=== PATIENT | female | born 1965 | race Hispanic/Latino ===

== ENCOUNTER 2019-05-02 21:36 | Inpatient (IN) | payer MEDICAID, OTHER ==
--- NOTE | 2019-05-02 21:49 | ED PDOC ---
Arrival/HPI - General Time Seen by Provider: 05/02/19 21:38 Historian: Patient - Critical Care Critical Care Minutes: 30 minutes - History of Present Illness Narrative History of Present Illness (Text): 05/03/19 00:13 54 year old female, with no known past medical history, presents to emergency department via EMS for possible drug overdose. As per collateral information obtained, patient was found at home somnolent with possible overdose. Paramedics were summoned, and patient was found to have pinpoint pupils and administered narcan with immediate response. On arrival to ER, patient was drowsy but awake. She refused to answer questions initially and was poorly cooperative with nursing staff. HPI limited due to patient being uncooperative. Time/Duration: Prior to Arrival Symptom Onset: Gradual Symptom Course: Unchanged Activities at Onset: Light Context: Home Past Medical History - Provider Review Nursing Documentation Reviewed: Yes Family/Social History - Physician Review Nursing Documentation Reviewed: Yes Family/Social History: Unknown Family HX Allergies/Home Meds Allergies/Adverse Reactions: Allergies Unobtainable Allergy (Verified 05/02/19 21:39) Home Medications: Home Meds Medication Instructions Recorded Confirmed Unobtainable 05/02/19 05/02/19 Review of Systems - Physician Review All systems were reviewed & negative as marked: Yes - Review of Systems Systems not reviewed;Unavailable: Uncooperative Physical Exam Vital Signs Reviewed: Yes Temperature: Afebrile Blood Pressure: Normal Pulse: Regular Respiratory Rate: Normal Appearance: Positive for: Well-Appearing, Non-Toxic, Comfortable Pain Distress: None Mental Status: Positive for: other (drowsy, easily arousable) - Systems Exam Head: Present: Atraumatic, Normocephalic Pupils: Present: PERRL Extroacular Muscles: Present: EOMI Conjunctiva: Present: Normal Ears: Present: NORMAL TM Mouth: Present: Moist Mucous Membranes Neck: Present: Normal Range of Motion Respiratory/Chest: Present: Clear to Auscultation, Good Air Exchange. No: Respiratory Distress, Accessory Muscle Use Cardiovascular: Present: Regular Rate and Rhythm, Normal S1, S2. No: Murmurs Abdomen: No: Tenderness, Distention, Peritoneal Signs Back: Present: Normal Inspection Upper Extremity: Present: Normal Inspection. No: Cyanosis, Edema Lower Extremity: Present: Normal Inspection. No: Edema Neurological: Present: GCS=15, CN II-XII Intact, Speech Normal, Motor Func Grossly Intact, Normal Sensory Function Skin: Present: Warm, Dry, Normal Color. No: Rashes Medical Decision Making ED Course and Treatment: 05/02/19 22:35 Impression: 54 year old female presents to emergency department via EMS for possible drug overdose. Plan: -- EKG -- Labs -- Chest X-ray -- Benadryl -- IV Fluids -- Reassess and disposition 05/03/19 00:36 EKG: Ordered, reviewed, and independently interpreted the EKG. Rate : 52 BPM Rhythm : Sinus bradycardia Interpretation : No acute changes 05/03/19 01:10 Case discussed with medical office technician and supervisor concrete block plant, . Patient accepted to ICU. 05/03/19 01:20 Poison control had been notified.They recommend starting Acetadote. Geotechnical Engineer aware.Orders placed. - RAD Interpretation Radiology Orders: 05/02/19 21:46 CHEST PORTABLE [RAD] Stat - Medication Orders Current Medication Orders: Sodium Chloride (Sodium Chloride 0.9%) 1,000 mls @ 100 mls/hr IV .Q10H PATTIE - Scribe Statement The provider has reviewed the documentation as recorded by the Scribe Joe Mario All medical record entries made by the Scribe were at my direction and personally dictated by me. I have reviewed the chart and agree that the record accurately reflects my personal performance of the history, physical exam, medical decision making, and the department course for this patient. I have also personally directed, reviewed, and agree with the discharge instructions and disposition. Disposition/Present on Arrival - Present on Arrival Any Indicators Present on Arrival: No History of DVT/PE: No History of Uncontrolled Diabetes: No Urinary Catheter: No History of Decub. Ulcer: No History Surgical Site Infection Following: None - Disposition Have Diagnosis and Disposition been Completed?: Yes Diagnosis: Drug overdose Disposition: HOSPITALIZED Disposition Time: 00:50 Patient Plan: ICU Patient Problems: Current Active Problems Problem Status Onset Drug overdose Acute Condition: GUARDED
[2019-05-02 22:19] LABS: ARTERIAL BLOOD GAS HCO3 29.9 mmol/L (21-28); ARTERIAL BLOOD GAS HEMOGLOBIN 13.7 g/dL (11.7-17.4); ARTERIAL BLOOD GAS O2 CONTENT 17.6 ML/dl (15-23); ARTERIAL BLOOD GAS PCO2 44 mm/Hg (35-45); ARTERIAL BLOOD GAS PH 7.44 (7.35-7.45); ARTERIAL BLOOD GAS TCO2 31.3 mmol.L (22-28)
[2019-05-02] MEDS: Sodium Chloride 0.9% 1,000 ML IV SCH (22:21)
[2019-05-02] MEDS ORDERED: DiphenhydrAMINE 50 mg/ml Inj IVP ONE (22:34)
[2019-05-02] MEDS ORDERED: DiphenhydrAMINE 50 mg/ml Inj ONE (22:35)
[2019-05-02 23:02] LABS: PHENCYCLIDINE, UR NEGATIVE (NEGATIVE)
[2019-05-02 23:11] LABS: BARBITURATES, UR NEGATIVE (NEGATIVE); BENZODIAZEPINES, UR POSITIVE (NEGATIVE); OPIATES, UR POSITIVE (NEGATIVE)
[2019-05-02 23:13] LABS: HEMOGLOBIN 13.2 g/dL (12.0-16.0); MEAN CELL VOLUME 88.8 fl (80.0-105.0); MEAN CORPUSCULAR HEMOGLOBIN 27.9 pg (25.0-35.0); MEAN CORPUSCULAR HGB CONC 31.4 g/dl (31.0-37.0); MEAN PLATELET VOLUME 10.4 fl (7.0-11.0); RBC 4.73 10^6/uL (3.5-6.1); RED CELL DISTRIBUTION WIDTH 14.7 % (11.5-14.5); WHITE BLOOD COUNT 5.9 10^3/uL (4.5-11.0)
[2019-05-02 23:26] LABS: ALBUMIN 3.7 g/dL (3.0-4.8); ALT/SGPT 16 U/L (7-56); AST/SGOT 34 U/L (14-36); BLOOD UREA NITROGEN 17 mg/dL (7-21); CALCIUM 9.1 mg/dL (8.4-10.5); GFR NON-AFRICAN AMERICAN > 60; SALICYLATE < 1 mg/dL (2.0-20.0)
[2019-05-02 23:37] LABS: TROPONIN I < 0.01 ng/mL
[2019-05-03] MEDS ORDERED: WATER IVPB STA (00:28)
[2019-05-03] MEDS ORDERED: DEXTROSE 5% IV ONE ×3 (00:28→05:28)
[2019-05-03] MEDS ORDERED: WATER IV ONE ×3 (00:28→05:28)
[2019-05-03] MEDS ORDERED: DEXTROSE 5% IVPB STA (00:28)
[2019-05-03] MEDS ORDERED: ACETYLCYSTEINE IVPB STA (00:28)
[2019-05-03] MEDS ORDERED: ACETYLCYSTEINE IV ONE ×3 (00:28→05:28)
--- NOTE | 2019-05-03 00:47 | CP.PCM.HP ---
<Jacques James - Last Filed: 05/03/19 03:38> History of Present Illness - History of Present Illness History of Present Illness: Poison control was contacted and case was discussed with litigation examiner. We were advised to treat the tylenol level given that the time of ingestion is unknown. In addition, patient was becoming bradycardic but hypertensive overnight; ordered a dig level given unknown patient history. Poison control will follow up with patient 21 hours after the first dose of NAC was given. Meds Allergies/Adverse Reactions: Allergies Allergy/AdvReac Type Severity Reaction Status Date / Time Unobtainable Allergy Verified 05/02/19 21:39 Results - Vital Signs Recent Vital Signs: Last Vital Signs Temp Pulse 45 L 05/03/19 01:41 Resp 20 05/03/19 01:41 BP 137/78 05/03/19 01:41 Pulse Ox 99 05/03/19 01:41 - Labs Result Diagrams: 05/02/19 23:00 05/02/19 23:00 Labs: Laboratory Results - last 24 hr 05/02/19 05/02/19 05/02/19 22:04 22:15 23:00 WBC RBC Hgb Hct MCV MCH MCHC RDW Plt Count MPV pCO2 44 pO2 76.0 L HCO3 29.9 H ABG pH 7.44 ABG Total CO2 31.3 H ABG O2 Saturation 98.0 ABG O2 Content 17.6 ABG Base Excess 5.0 H ABG Hemoglobin 13.7 ABG Carboxyhemoglobin 5.7 H POC ABG HHb (Measured) 1.9 ABG Methemoglobin 1.0 ABG O2 Capacity 18.0 Hgb O2 Saturation 91.3 L FiO2 28.0 Sodium 141 Potassium 3.6 Chloride 104 Carbon Dioxide 34 H Anion Gap 7 L BUN 17 Creatinine 0.8 Est GFR ( Amer) > 60 Est GFR (Non-Af Amer) > 60 Random Glucose 92 Calcium 9.1 Total Bilirubin 0.3 AST 34 ALT 16 Alkaline Phosphatase 73 Lactate Dehydrogenase 559 Total Creatine Kinase 201 Troponin I < 0.01 Total Protein 7.4 Albumin 3.7 Globulin 3.7 Albumin/Globulin Ratio 1.0 L Salicylates Urine Opiates Screen Positive H Urine Methadone Screen Negative Acetaminophen Ur Barbiturates Screen Negative Ur Phencyclidine Scrn Negative Ur Amphetamines Screen Negative U Benzodiazepines Scrn Positive H U Oth Cocaine Metabols Negative U Cannabinoids Screen Negative Alcohol, Quantitative 05/02/19 05/02/19 05/02/19 23:00 23:00 23:00 WBC 5.9 RBC 4.73 Hgb 13.2 Hct 42.0 MCV 88.8 MCH 27.9 MCHC 31.4 RDW 14.7 H Plt Count 203 MPV 10.4 pCO2 pO2 HCO3 ABG pH ABG Total CO2 ABG O2 Saturation ABG O2 Content ABG Base Excess ABG Hemoglobin ABG Carboxyhemoglobin POC ABG HHb (Measured) ABG Methemoglobin ABG O2 Capacity Hgb O2 Saturation FiO2 Sodium Potassium Chloride Carbon Dioxide Anion Gap BUN Creatinine Est GFR ( Amer) Est GFR (Non-Af Amer) Random Glucose Calcium Total Bilirubin AST ALT Alkaline Phosphatase Lactate Dehydrogenase Total Creatine Kinase Troponin I Total Protein Albumin Globulin Albumin/Globulin Ratio Salicylates < 1 L Urine Opiates Screen Urine Methadone Screen Acetaminophen 36.0 H Ur Barbiturates Screen Ur Phencyclidine Scrn Ur Amphetamines Screen U Benzodiazepines Scrn U Oth Cocaine Metabols U Cannabinoids Screen Alcohol, Quantitative < 10 <Clive Spencer - Last Filed: 05/03/19 04:05> History of Present Illness - History of Present Illness History of Present Illness: HISTORY & PHYSICAL NOTE FOR HOSPITALIST SERVICE CLIVE MARÍA PGY1 54 y/o F with unknown presented to ED bib EMS as patient was found down at home by her son. As per ED staff, patient was found at home somnolent with possible overdose. EMS was called and patient was found to have pinpoint pupils and administered 5 doses of narcan with immediate response. On arrival to ER, patient was drowsy but awake. She refused to answer questions initially and was poorly cooperative with nursing staff. Later on in ED, kvng watson was called as patient was very agitated per nursing staff. Patient was given ativan by ED staff. Upon interview, pt is very somnolent, grimacing to sternal rub however not awakening. History & ROS unable to be obtained. PMH: Unable to obtain- pt not awake All: Unable to obtain- pt not awake PSH: Unable to obtain- pt not awake SH: Unable to obtain- pt not awake Hosp: Unable to obtain- pt not awake FH: Unable to obtain- pt not awake Meds: Unable to obtain- pt not awake Present on Admission - Present on Admission Any Indicators Present on Admission: No Review of Systems - Review of Systems Review of Systems: per HPI Past Patient History - Past Social History Smoking Status: Unknown If Ever Smoked - PSYCHIATRIC Hx Substance Use: No - SURGICAL HISTORY Hx Surgeries: No - ANESTHESIA Hx Anesthesia: No Physical Exam - Constitutional Appears: Non-toxic - Head Exam Head Exam: NORMAL INSPECTION, NORMOCEPHALIC - Eye Exam Eye Exam: Normal appearance Pupil Exam: PERRL - ENT Exam ENT Exam: Mucous Membranes Moist, Normal Exam - Neck Exam Neck exam: Positive for: Normal Inspection - Respiratory Exam Respiratory Exam: Clear to Auscultation Bilateral, NORMAL BREATHING PATTERN - Cardiovascular Exam Cardiovascular Exam: Bradycardia, +S1, +S2 - GI/Abdominal Exam GI & Abdominal Exam: Soft. absent: Tenderness - Extremities Exam Extremities exam: Positive for: normal inspection - Back Exam Back exam: NORMAL INSPECTION - Neurological Exam Additional comments: Pt asleep, arousable however not awake and responding to commands. - Skin Skin Exam: Dry, Intact, Warm Results - Vital Signs Recent Vital Signs: Last Vital Signs Temp Pulse 82 05/03/19 00:07 Resp 19 05/03/19 00:07 BP 156/83 H 05/03/19 00:07 Pulse Ox 98 05/03/19 00:07 - Labs Result Diagrams: 05/02/19 23:00 05/02/19 23:00 Labs: Laboratory Results - last 24 hr 05/02/19 05/02/19 05/02/19 22:04 22:15 23:00 WBC RBC Hgb Hct MCV MCH MCHC RDW Plt Count MPV pCO2 44 pO2 76.0 L HCO3 29.9 H ABG pH 7.44 ABG Total CO2 31.3 H ABG O2 Saturation 98.0 ABG O2 Content 17.6 ABG Base Excess 5.0 H ABG Hemoglobin 13.7 ABG Carboxyhemoglobin 5.7 H POC ABG HHb (Measured) 1.9 ABG Methemoglobin 1.0 ABG O2 Capacity 18.0 Hgb O2 Saturation 91.3 L FiO2 28.0 Sodium 141 Potassium 3.6 Chloride 104 Carbon Dioxide 34 H Anion Gap 7 L BUN 17 Creatinine 0.8 Est GFR ( Amer) > 60 Est GFR (Non-Af Amer) > 60 Random Glucose 92 Calcium 9.1 Total Bilirubin 0.3 AST 34 ALT 16 Alkaline Phosphatase 73 Lactate Dehydrogenase 559 Total Creatine Kinase 201 Troponin I < 0.01 Total Protein 7.4 Albumin 3.7 Globulin 3.7 Albumin/Globulin Ratio 1.0 L Salicylates Urine Opiates Screen Positive H Urine Methadone Screen Negative Acetaminophen Ur Barbiturates Screen Negative Ur Phencyclidine Scrn Negative Ur Amphetamines Screen Negative U Benzodiazepines Scrn Positive H U Oth Cocaine Metabols Negative U Cannabinoids Screen Negative Alcohol, Quantitative 05/02/19 05/02/19 05/02/19 23:00 23:00 23:00 WBC 5.9 RBC 4.73 Hgb 13.2 Hct 42.0 MCV 88.8 MCH 27.9 MCHC 31.4 RDW 14.7 H Plt Count 203 MPV 10.4 pCO2 pO2 HCO3 ABG pH ABG Total CO2 ABG O2 Saturation ABG O2 Content ABG Base Excess ABG Hemoglobin ABG Carboxyhemoglobin POC ABG HHb (Measured) ABG Methemoglobin ABG O2 Capacity Hgb O2 Saturation FiO2 Sodium Potassium Chloride Carbon Dioxide Anion Gap BUN Creatinine Est GFR ( Amer) Est GFR (Non-Af Amer) Random Glucose Calcium Total Bilirubin AST ALT Alkaline Phosphatase Lactate Dehydrogenase Total Creatine Kinase Troponin I Total Protein Albumin Globulin Albumin/Globulin Ratio Salicylates < 1 L Urine Opiates Screen Urine Methadone Screen Acetaminophen 36.0 H Ur Barbiturates Screen Ur Phencyclidine Scrn Ur Amphetamines Screen U Benzodiazepines Scrn U Oth Cocaine Metabols U Cannabinoids Screen Alcohol, Quantitative < 10 Assessment & Plan - Assessment and Plan (Free Text) Assessment: 54 y/o F with unknown PMH admitted to ICU for likely opioid intoxication s/p 5 doses narcan administration in the field. Pt had response initially, was given ativan in ED and subsequently more somnolent. Plan: Opiate intoxication -s/p narcan in field w/ appropriate response. s/p ativan in ED for agitation. pt somnolent upon interview. Patient RR: 19, ABG reveals 7.44/44/76/34, SpO2: 98% on NC. Utox (+): opiates/acetaminophen/benzodiazepine -will avoid further benzodiazepines -will hold off of NIPPV/ETT and narcan right now. Patient saturating well on NC -Head CT not ordered by ED, will order and f/u results Acetaminophen intoxication -Utox (+): opiates/acetaminophen -Will start weight based acetylcysteine IV. 150 mg/kg x 1h. 50mg/kg x 1 over 4h. 100mg/kg x 1 over 16h -repeat acetaminophen level in am -c/w IVF @100mls/hr -Head CT not ordered by ED, will order and f/u results. Benzodiazepine intoxication -Utox (+) prior to 1mg ativan administration in ED -Will avoid benzodiazepines -Will not administer flumazenil at this time d/t risk of seizure induction -Will contact poison control DVT/GI: lovenox/pepcid Case reviewed with attending physician, Dr. Eris Spencer PGY1 <Derek Schulte - Last Filed: 05/03/19 19:01> Results - Vital Signs Recent Vital Signs: Last Vital Signs Temp 97 F L 05/03/19 03:00 Pulse 60 05/03/19 16:08 Resp 46 H 05/03/19 14:50 BP 210/97 H 05/03/19 16:08 Pulse Ox 97 05/03/19 14:50 - Labs Result Diagrams: 05/03/19 06:45 05/03/19 06:45 Labs: Laboratory Results - last 24 hr 05/02/19 05/02/19 05/02/19 22:04 22:15 23:00 WBC RBC Hgb Hct MCV MCH MCHC RDW Plt Count MPV Neut % (Auto) Lymph % (Auto) [place] % (Auto) Eos % (Auto) Baso % (Auto) Lymph # (Auto) [place] # (Auto) Eos # (Auto) Baso # (Auto) Absolute Neuts (auto) PT INR APTT pCO2 44 pO2 76.0 L HCO3 29.9 H ABG pH 7.44 ABG Total CO2 31.3 H ABG O2 Saturation 98.0 ABG O2 Content 17.6 ABG Base Excess 5.0 H ABG Hemoglobin 13.7 ABG Carboxyhemoglobin 5.7 H POC ABG HHb (Measured) 1.9 ABG Methemoglobin 1.0 ABG O2 Capacity 18.0 Hgb O2 Saturation 91.3 L FiO2 28.0 Sodium 141 Potassium 3.6 Chloride 104 Carbon Dioxide 34 H Anion Gap 7 L BUN 17 Creatinine 0.8 Est GFR ( Amer) > 60 Est GFR (Non-Af Amer) > 60 Random Glucose 92 Calcium 9.1 Phosphorus Magnesium Total Bilirubin 0.3 AST 34 ALT 16 Alkaline Phosphatase 73 Lactate Dehydrogenase 559 Total Creatine Kinase 201 Troponin I < 0.01 Total Protein 7.4 Albumin 3.7 Globulin 3.7 Albumin/Globulin Ratio 1.0 L Urine Color Urine Appearance Urine pH Ur Specific [place] Urine Protein Urine Glucose (UA) Urine Ketones Urine Blood Urine Nitrate Urine Bilirubin Urine Urobilinogen Ur Leukocyte Esterase Urine RBC Urine WBC Ur Epithelial Cells Urine Bacteria Hyaline Casts Urine Other Salicylates Urine Opiates Screen Positive H Urine Methadone Screen Negative Acetaminophen Ur Barbiturates Screen Negative Ur Phencyclidine Scrn Negative Ur Amphetamines Screen Negative U Benzodiazepines Scrn Positive H U Oth Cocaine Metabols Negative U Cannabinoids Screen Negative Alcohol, Quantitative 05/02/19 05/02/19 05/02/19 23:00 23:00 23:00 WBC 5.9 RBC 4.73 Hgb 13.2 Hct 42.0 MCV 88.8 MCH 27.9 MCHC 31.4 RDW 14.7 H Plt Count 203 MPV 10.4 Neut % (Auto) Lymph % (Auto) [place] % (Auto) Eos % (Auto) Baso % (Auto) Lymph # (Auto) [place] # (Auto) Eos # (Auto) Baso # (Auto) Absolute Neuts (auto) PT INR APTT pCO2 pO2 HCO3 ABG pH ABG Total CO2 ABG O2 Saturation ABG O2 Content ABG Base Excess ABG Hemoglobin ABG Carboxyhemoglobin POC ABG HHb (Measured) ABG Methemoglobin ABG O2 Capacity Hgb O2 Saturation FiO2 Sodium Potassium Chloride Carbon Dioxide Anion Gap BUN Creatinine Est GFR ( Amer) Est GFR (Non-Af Amer) Random Glucose Calcium Phosphorus Magnesium Total Bilirubin AST ALT Alkaline Phosphatase Lactate Dehydrogenase Total Creatine Kinase Troponin I Total Protein Albumin Globulin Albumin/Globulin Ratio Urine Color Urine Appearance Urine pH Ur Specific [place] Urine Protein Urine Glucose (UA) Urine Ketones Urine Blood Urine Nitrate Urine Bilirubin Urine Urobilinogen Ur Leukocyte Esterase Urine RBC Urine WBC Ur Epithelial Cells Urine Bacteria Hyaline Casts Urine Other Salicylates < 1 L Urine Opiates Screen Urine Methadone Screen Acetaminophen 36.0 H Ur Barbiturates Screen Ur Phencyclidine Scrn Ur Amphetamines Screen U Benzodiazepines Scrn U Oth Cocaine Metabols U Cannabinoids Screen Alcohol, Quantitative < 10 05/03/19 05/03/19 05/03/19 01:35 06:45 06:45 WBC 5.2 RBC 4.73 Hgb 13.2 Hct 42.0 MCV 88.8 MCH 27.9 MCHC 31.4 RDW 14.6 H Plt Count 203 MPV 10.8 Neut % (Auto) 62.0 Lymph % (Auto) 19.3 L [place] % (Auto) 9.4 H Eos % (Auto) 8.5 H Baso % (Auto) 0.8 Lymph # (Auto) 1.0 L [place] # (Auto) 0.5 Eos # (Auto) 0.4 Baso # (Auto) 0.04 Absolute Neuts (auto) 3.22 PT INR APTT pCO2 pO2 HCO3 ABG pH ABG Total CO2 ABG O2 Saturation ABG O2 Content ABG Base Excess ABG Hemoglobin ABG Carboxyhemoglobin POC ABG HHb (Measured) ABG Methemoglobin ABG O2 Capacity Hgb O2 Saturation FiO2 Sodium 140 Potassium 3.7 Chloride 103 Carbon Dioxide 31 Anion Gap 9 L BUN 14 Creatinine 0.6 L Est GFR ( Amer) > 60 Est GFR (Non-Af Amer) > 60 Random Glucose 101 Calcium 8.5 Phosphorus 3.3 Magnesium 2.0 Total Bilirubin 0.4 AST 27 ALT 18 Alkaline Phosphatase 31 L D Lactate Dehydrogenase Total Creatine Kinase Troponin I Total Protein 6.5 Albumin 3.1 Globulin 3.4 Albumin/Globulin Ratio 0.9 L Urine Color Yellow Urine Appearance Clear Urine pH 6.5 Ur Specific [place] 1.020 Urine Protein Negative Urine Glucose (UA) Negative Urine Ketones Negative Urine Blood Small H Urine Nitrate Negative Urine Bilirubin Negative Urine Urobilinogen 0.2 Ur Leukocyte Esterase Negative Urine RBC 2 - 5 H Urine WBC 0 - 2 Ur Epithelial Cells 3 - 4 Urine Bacteria Small Hyaline Casts 0 - 2 Urine Other Fiber Salicylates Urine Opiates Screen Urine Methadone Screen Acetaminophen Ur Barbiturates Screen Ur Phencyclidine Scrn Ur Amphetamines Screen U Benzodiazepines Scrn U Oth Cocaine Metabols U Cannabinoids Screen Alcohol, Quantitative 05/03/19 05/03/19 05/03/19 06:45 06:45 10:45 WBC RBC Hgb Hct MCV MCH MCHC RDW Plt Count MPV Neut % (Auto) Lymph % (Auto) [place] % (Auto) Eos % (Auto) Baso % (Auto) Lymph # (Auto) [place] # (Auto) Eos # (Auto) Baso # (Auto) Absolute Neuts (auto) PT 13.8 H INR 1.22 APTT 30.1 pCO2 pO2 HCO3 ABG pH ABG Total CO2 ABG O2 Saturation ABG O2 Content ABG Base Excess ABG Hemoglobin ABG Carboxyhemoglobin POC ABG HHb (Measured) ABG Methemoglobin ABG O2 Capacity Hgb O2 Saturation FiO2 Sodium Potassium Chloride Carbon Dioxide Anion Gap BUN Creatinine Est GFR ( Amer) Est GFR (Non-Af Amer) Random Glucose Calcium Phosphorus Magnesium Total Bilirubin AST ALT Alkaline Phosphatase Lactate Dehydrogenase Total Creatine Kinase Troponin I Total Protein Albumin Globulin Albumin/Globulin Ratio Urine Color Urine Appearance Urine pH Ur Specific [place] Urine Protein Urine Glucose (UA) Urine Ketones Urine Blood Urine Nitrate Urine Bilirubin Urine Urobilinogen Ur Leukocyte Esterase Urine RBC Urine WBC Ur Epithelial Cells Urine Bacteria Hyaline Casts Urine Other Salicylates Urine Opiates Screen Urine Methadone Screen Acetaminophen < 10.0 L < 10.0 L Ur Barbiturates Screen Ur Phencyclidine Scrn Ur Amphetamines Screen U Benzodiazepines Scrn U Oth Cocaine Metabols U Cannabinoids Screen Alcohol, Quantitative 05/03/19 14:50 WBC RBC Hgb Hct MCV MCH MCHC RDW Plt Count MPV Neut % (Auto) Lymph % (Auto) [place] % (Auto) Eos % (Auto) Baso % (Auto) Lymph # (Auto) [place] # (Auto) Eos # (Auto) Baso # (Auto) Absolute Neuts (auto) PT INR APTT pCO2 pO2 HCO3 ABG pH ABG Total CO2 ABG O2 Saturation ABG O2 Content ABG Base Excess ABG Hemoglobin ABG Carboxyhemoglobin POC ABG HHb (Measured) ABG Methemoglobin ABG O2 Capacity Hgb O2 Saturation FiO2 Sodium Potassium Chloride Carbon Dioxide Anion Gap BUN Creatinine Est GFR ( Amer) Est GFR (Non-Af Amer) Random Glucose Calcium Phosphorus Magnesium Total Bilirubin AST ALT Alkaline Phosphatase Lactate Dehydrogenase Total Creatine Kinase Troponin I Total Protein Albumin Globulin Albumin/Globulin Ratio Urine Color Urine Appearance Urine pH Ur Specific [place] Urine Protein Urine Glucose (UA) Urine Ketones Urine Blood Urine Nitrate Urine Bilirubin Urine Urobilinogen Ur Leukocyte Esterase Urine RBC Urine WBC Ur Epithelial Cells Urine Bacteria Hyaline Casts Urine Other Salicylates Urine Opiates Screen Urine Methadone Screen Acetaminophen < 10.0 L Ur Barbiturates Screen Ur Phencyclidine Scrn Ur Amphetamines Screen U Benzodiazepines Scrn U Oth Cocaine Metabols U Cannabinoids Screen Alcohol, Quantitative Attending/Attestation - Attestation I have personally seen and examined this patient.: Yes I have fully participated in the care of the patient.: Yes I have reviewed all pertinent clinical information: Yes Notes (Text): 05/03/19 19:01 Seen and examined. discussed with resident. A&P as above.
[2019-05-03 01:11] VITALS: BMI 31.6
[2019-05-03 04:59] VITALS: TEMP 97
--- NOTE | 2019-05-03 05:05 | CP.PCM.CON ---
<Taco Spencer - Last Filed: 05/03/19 05:01> History of Present Illness - History of Present Illness History of Present Illness: ICU CONSULT NOTE FOR DR. ERIS SPENCER PGY1 54 y/o F with unknown presented to ED bib EMS as patient was found down at home by her son. As per ED staff, patient was found at home somnolent with possible overdose. EMS was called and patient was found to have pinpoint pupils and administered 5 doses of narcan with immediate response. On arrival to ER, patient was drowsy but awake. She refused to answer questions initially and was poorly cooperative with nursing staff. Later on in ED, kvng watson was called as patient was very agitated per nursing staff. Patient was given ativan by ED staff. Upon interview, pt is very somnolent, grimacing to sternal rub however not awakening. History & ROS unable to be obtained. PMH: Unable to obtain- pt not awake All: Unable to obtain- pt not awake PSH: Unable to obtain- pt not awake SH: Unable to obtain- pt not awake Hosp: Unable to obtain- pt not awake FH: Unable to obtain- pt not awake Meds: Unable to obtain- pt not awake Review of Systems - Review of Systems Review of Systems: per HPI Past Patient History - Past Social History Smoking Status: Unknown If Ever Smoked - MUSCULOSKELETAL/RHEUMATOLOGICAL Hx Falls: No - GENITOURINARY/GYNECOLOGICAL Hx Incontinence: Yes - PSYCHIATRIC Hx Substance Use: No - SURGICAL HISTORY Hx Surgeries: No - ANESTHESIA Hx Anesthesia: No Meds Allergies/Adverse Reactions: Allergies Allergy/AdvReac Type Severity Reaction Status Date / Time Unobtainable Allergy Verified 05/02/19 21:39 - Medications Medications: Current Medications Enoxaparin Sodium (Lovenox) 40 mg SC DAILY [facility]; Protocol Famotidine (Pepcid) 20 mg IVP DAILY [facility] Sodium Chloride (Sodium Chloride 0.9%) 1,000 mls @ 100 mls/hr IV .Q10H [facility] Last Admin: 05/02/19 22:21 Dose: 100 mls/hr Acetylcysteine 4,384 mg/ (Dextrose) 500 mls @ 125 mls/hr IV .Q4H [facility]; Protocol Stop: 05/03/19 05:27 Last Admin: 05/03/19 03:00 Dose: 125 mls/hr Acetylcysteine 8,768 mg/ (Dextrose) 1,000 mls @ 62.5 mls/hr IV .Q16H [facility]; Protocol Stop: 05/03/19 21:27 Nicotine (Nicoderm Cq) 1 patch TD DAILY [facility] Physical Exam - Constitutional Appears: Non-toxic - Head Exam Head Exam: NORMAL INSPECTION, NORMOCEPHALIC - Eye Exam Eye Exam: PERRL - ENT Exam ENT Exam: Mucous Membranes Moist, Normal Exam - Neck Exam Neck exam: Positive for: Normal Inspection - Respiratory Exam Respiratory Exam: NORMAL BREATHING PATTERN - Cardiovascular Exam Cardiovascular Exam: Bradycardia, +S1, +S2 - GI/Abdominal Exam GI & Abdominal Exam: Soft. absent: Tenderness - Extremities Exam Extremities exam: Positive for: normal inspection - Back Exam Back exam: NORMAL INSPECTION - Skin Skin Exam: Dry, Intact, Warm Results - Vital Signs Recent Vital Signs: Last Vital Signs Temp 97 F L 05/03/19 03:00 Pulse 54 L 05/03/19 04:30 Resp 86 H 05/03/19 04:30 BP 181/108 H 05/03/19 04:01 Pulse Ox 100 05/03/19 04:30 - Labs Result Diagrams: 05/02/19 23:00 05/02/19 23:00 Labs: Laboratory Results - last 24 hr 05/02/19 05/02/19 05/02/19 22:04 22:15 23:00 WBC RBC Hgb Hct MCV MCH MCHC RDW Plt Count MPV pCO2 44 pO2 76.0 L HCO3 29.9 H ABG pH 7.44 ABG Total CO2 31.3 H ABG O2 Saturation 98.0 ABG O2 Content 17.6 ABG Base Excess 5.0 H ABG Hemoglobin 13.7 ABG Carboxyhemoglobin 5.7 H POC ABG HHb (Measured) 1.9 ABG Methemoglobin 1.0 ABG O2 Capacity 18.0 Hgb O2 Saturation 91.3 L FiO2 28.0 Sodium 141 Potassium 3.6 Chloride 104 Carbon Dioxide 34 H Anion Gap 7 L BUN 17 Creatinine 0.8 Est GFR ( Amer) > 60 Est GFR (Non-Af Amer) > 60 Random Glucose 92 Calcium 9.1 Total Bilirubin 0.3 AST 34 ALT 16 Alkaline Phosphatase 73 Lactate Dehydrogenase 559 Total Creatine Kinase 201 Troponin I < 0.01 Total Protein 7.4 Albumin 3.7 Globulin 3.7 Albumin/Globulin Ratio 1.0 L Salicylates Urine Opiates Screen Positive H Urine Methadone Screen Negative Acetaminophen Ur Barbiturates Screen Negative Ur Phencyclidine Scrn Negative Ur Amphetamines Screen Negative U Benzodiazepines Scrn Positive H U Oth Cocaine Metabols Negative U Cannabinoids Screen Negative Alcohol, Quantitative 05/02/19 05/02/19 05/02/19 23:00 23:00 23:00 WBC 5.9 RBC 4.73 Hgb 13.2 Hct 42.0 MCV 88.8 MCH 27.9 MCHC 31.4 RDW 14.7 H Plt Count 203 MPV 10.4 pCO2 pO2 HCO3 ABG pH ABG Total CO2 ABG O2 Saturation ABG O2 Content ABG Base Excess ABG Hemoglobin ABG Carboxyhemoglobin POC ABG HHb (Measured) ABG Methemoglobin ABG O2 Capacity Hgb O2 Saturation FiO2 Sodium Potassium Chloride Carbon Dioxide Anion Gap BUN Creatinine Est GFR ( Amer) Est GFR (Non-Af Amer) Random Glucose Calcium Total Bilirubin AST ALT Alkaline Phosphatase Lactate Dehydrogenase Total Creatine Kinase Troponin I Total Protein Albumin Globulin Albumin/Globulin Ratio Salicylates < 1 L Urine Opiates Screen Urine Methadone Screen Acetaminophen 36.0 H Ur Barbiturates Screen Ur Phencyclidine Scrn Ur Amphetamines Screen U Benzodiazepines Scrn U Oth Cocaine Metabols U Cannabinoids Screen Alcohol, Quantitative < 10 Assessment & Plan - Assessment and Plan (Free Text) Assessment: 54 y/o F with unknown PMH admitted to ICU for likely opioid intoxication s/p 5 doses narcan administration in the field. Pt had response initially, was given ativan in ED and subsequently more somnolent. Plan: Opiate intoxication -s/p narcan in field w/ appropriate response. s/p ativan in ED for agitation. pt somnolent upon interview. Patient RR: 19, ABG reveals 7.44/44/76/34, SpO2: 98% on NC. Utox (+): opiates/acetaminophen/benzodiazepine -will avoid further benzodiazepines -will hold off of NIPPV/ETT and narcan right now. Patient saturating well on NC -Head CT not ordered by ED, will order and f/u results Acetaminophen intoxication -Utox (+): opiates/acetaminophen -Will start weight based acetylcysteine IV. 150 mg/kg x 1h. 50mg/kg x 1 over 4h. 100mg/kg x 1 over 16h -repeat acetaminophen level in am -c/w IVF @100mls/hr -Head CT not ordered by ED, will order and f/u results. Benzodiazepine intoxication -Utox (+) prior to 1mg ativan administration in ED -Will avoid benzodiazepines -Will not administer flumazenil at this time d/t risk of seizure induction Poison control was contacted and case was discussed with development representative. We were advised to treat the tylenol level given that the time of ingestion is unknown. In addition, patient was becoming bradycardic but hypertensive overnight; ordered a dig level given unknown patient history. Poison control will follow up with patient 21 hours after the first dose of NAC was given. DVT/GI: lovenox/pepcid Case reviewed with attending physician, Dr. Eris Spencer PGY1 <Derek Schulte - Last Filed: 05/03/19 19:01> Meds - Medications Medications: Current Medications Clonidine HCl (Catapres) 0.3 mg PO Q8H [facility] Last Admin: 05/03/19 16:08 Dose: 0.3 mg Enoxaparin Sodium (Lovenox) 40 mg SC DAILY [facility]; Protocol Last Admin: 05/03/19 09:29 Dose: 40 mg Famotidine (Pepcid) 20 mg IVP DAILY [facility] Last Admin: 05/03/19 09:28 Dose: 20 mg Hydralazine HCl (Apresoline) 10 mg IVP Q6 PRN PRN Reason: Systolic Blood Pressure Last Admin: 05/03/19 16:04 Dose: 10 mg Nitroglycerin/Dextrose (Nitroglycerin 50 Mg/250 Ml D5w) 50 mg in 250 mls @ 1.5 mls/hr IV .Q24H [facility]; Protocol PRN Reason: Systolic Blood Pressure Last Titration: 05/03/19 18:00 Dose: 5 mcg/min, 1.5 mls/hr Lisinopril (Zestril) 10 mg PO DAILY [facility] Nicotine (Nicoderm Cq) 1 patch TD DAILY [facility] Last Admin: 05/03/19 09:28 Dose: 1 patch Results - Vital Signs Recent Vital Signs: Last Vital Signs Temp 97 F L 05/03/19 03:00 Pulse 60 05/03/19 16:08 Resp 46 H 05/03/19 14:50 BP 210/97 H 05/03/19 16:08 Pulse Ox 97 05/03/19 14:50 - Labs Result Diagrams: 05/03/19 06:45 05/03/19 06:45 Labs: Laboratory Results - last 24 hr 05/02/19 05/02/19 05/02/19 22:04 22:15 23:00 WBC RBC Hgb Hct MCV MCH MCHC RDW Plt Count MPV Neut % (Auto) Lymph % (Auto) [place] % (Auto) Eos % (Auto) Baso % (Auto) Lymph # (Auto) [place] # (Auto) Eos # (Auto) Baso # (Auto) Absolute Neuts (auto) PT INR APTT pCO2 44 pO2 76.0 L HCO3 29.9 H ABG pH 7.44 ABG Total CO2 31.3 H ABG O2 Saturation 98.0 ABG O2 Content 17.6 ABG Base Excess 5.0 H ABG Hemoglobin 13.7 ABG Carboxyhemoglobin 5.7 H POC ABG HHb (Measured) 1.9 ABG Methemoglobin 1.0 ABG O2 Capacity 18.0 Hgb O2 Saturation 91.3 L FiO2 28.0 Sodium 141 Potassium 3.6 Chloride 104 Carbon Dioxide 34 H Anion Gap 7 L BUN 17 Creatinine 0.8 Est GFR ( Amer) > 60 Est GFR (Non-Af Amer) > 60 Random Glucose 92 Calcium 9.1 Phosphorus Magnesium Total Bilirubin 0.3 AST 34 ALT 16 Alkaline Phosphatase 73 Lactate Dehydrogenase 559 Total Creatine Kinase 201 Troponin I < 0.01 Total Protein 7.4 Albumin 3.7 Globulin 3.7 Albumin/Globulin Ratio 1.0 L Urine Color Urine Appearance Urine pH Ur Specific [place] Urine Protein Urine Glucose (UA) Urine Ketones Urine Blood Urine Nitrate Urine Bilirubin Urine Urobilinogen Ur Leukocyte Esterase Urine RBC Urine WBC Ur Epithelial Cells Urine Bacteria Hyaline Casts Urine Other Salicylates Urine Opiates Screen Positive H Urine Methadone Screen Negative Acetaminophen Ur Barbiturates Screen Negative Ur Phencyclidine Scrn Negative Ur Amphetamines Screen Negative U Benzodiazepines Scrn Positive H U Oth Cocaine Metabols Negative U Cannabinoids Screen Negative Alcohol, Quantitative 05/02/19 05/02/19 05/02/19 23:00 23:00 23:00 WBC 5.9 RBC 4.73 Hgb 13.2 Hct 42.0 MCV 88.8 MCH 27.9 MCHC 31.4 RDW 14.7 H Plt Count 203 MPV 10.4 Neut % (Auto) Lymph % (Auto) [place] % (Auto) Eos % (Auto) Baso % (Auto) Lymph # (Auto) [place] # (Auto) Eos # (Auto) Baso # (Auto) Absolute Neuts (auto) PT INR APTT pCO2 pO2 HCO3 ABG pH ABG Total CO2 ABG O2 Saturation ABG O2 Content ABG Base Excess ABG Hemoglobin ABG Carboxyhemoglobin POC ABG HHb (Measured) ABG Methemoglobin ABG O2 Capacity Hgb O2 Saturation FiO2 Sodium Potassium Chloride Carbon Dioxide Anion Gap BUN Creatinine Est GFR ( Amer) Est GFR (Non-Af Amer) Random Glucose Calcium Phosphorus Magnesium Total Bilirubin AST ALT Alkaline Phosphatase Lactate Dehydrogenase Total Creatine Kinase Troponin I Total Protein Albumin Globulin Albumin/Globulin Ratio Urine Color Urine Appearance Urine pH Ur Specific [place] Urine Protein Urine Glucose (UA) Urine Ketones Urine Blood Urine Nitrate Urine Bilirubin Urine Urobilinogen Ur Leukocyte Esterase Urine RBC Urine WBC Ur Epithelial Cells Urine Bacteria Hyaline Casts Urine Other Salicylates < 1 L Urine Opiates Screen Urine Methadone Screen Acetaminophen 36.0 H Ur Barbiturates Screen Ur Phencyclidine Scrn Ur Amphetamines Screen U Benzodiazepines Scrn U Oth Cocaine Metabols U Cannabinoids Screen Alcohol, Quantitative < 10 05/03/19 05/03/19 05/03/19 01:35 06:45 06:45 WBC 5.2 RBC 4.73 Hgb 13.2 Hct 42.0 MCV 88.8 MCH 27.9 MCHC 31.4 RDW 14.6 H Plt Count 203 MPV 10.8 Neut % (Auto) 62.0 Lymph % (Auto) 19.3 L [place] % (Auto) 9.4 H Eos % (Auto) 8.5 H Baso % (Auto) 0.8 Lymph # (Auto) 1.0 L [place] # (Auto) 0.5 Eos # (Auto) 0.4 Baso # (Auto) 0.04 Absolute Neuts (auto) 3.22 PT INR APTT pCO2 pO2 HCO3 ABG pH ABG Total CO2 ABG O2 Saturation ABG O2 Content ABG Base Excess ABG Hemoglobin ABG Carboxyhemoglobin POC ABG HHb (Measured) ABG Methemoglobin ABG O2 Capacity Hgb O2 Saturation FiO2 Sodium 140 Potassium 3.7 Chloride 103 Carbon Dioxide 31 Anion Gap 9 L BUN 14 Creatinine 0.6 L Est GFR ( Amer) > 60 Est GFR (Non-Af Amer) > 60 Random Glucose 101 Calcium 8.5 Phosphorus 3.3 Magnesium 2.0 Total Bilirubin 0.4 AST 27 ALT 18 Alkaline Phosphatase 31 L D Lactate Dehydrogenase Total Creatine Kinase Troponin I Total Protein 6.5 Albumin 3.1 Globulin 3.4 Albumin/Globulin Ratio 0.9 L Urine Color Yellow Urine Appearance Clear Urine pH 6.5 Ur Specific [place] 1.020 Urine Protein Negative Urine Glucose (UA) Negative Urine Ketones Negative Urine Blood Small H Urine Nitrate Negative Urine Bilirubin Negative Urine Urobilinogen 0.2 Ur Leukocyte Esterase Negative Urine RBC 2 - 5 H Urine WBC 0 - 2 Ur Epithelial Cells 3 - 4 Urine Bacteria Small Hyaline Casts 0 - 2 Urine Other Fiber Salicylates Urine Opiates Screen Urine Methadone Screen Acetaminophen Ur Barbiturates Screen Ur Phencyclidine Scrn Ur Amphetamines Screen U Benzodiazepines Scrn U Oth Cocaine Metabols U Cannabinoids Screen Alcohol, Quantitative 05/03/19 05/03/19 05/03/19 06:45 06:45 10:45 WBC RBC Hgb Hct MCV MCH MCHC RDW Plt Count MPV Neut % (Auto) Lymph % (Auto) [place] % (Auto) Eos % (Auto) Baso % (Auto) Lymph # (Auto) [place] # (Auto) Eos # (Auto) Baso # (Auto) Absolute Neuts (auto) PT 13.8 H INR 1.22 APTT 30.1 pCO2 pO2 HCO3 ABG pH ABG Total CO2 ABG O2 Saturation ABG O2 Content ABG Base Excess ABG Hemoglobin ABG Carboxyhemoglobin POC ABG HHb (Measured) ABG Methemoglobin ABG O2 Capacity Hgb O2 Saturation FiO2 Sodium Potassium Chloride Carbon Dioxide Anion Gap BUN Creatinine Est GFR ( Amer) Est GFR (Non-Af Amer) Random Glucose Calcium Phosphorus Magnesium Total Bilirubin AST ALT Alkaline Phosphatase Lactate Dehydrogenase Total Creatine Kinase Troponin I Total Protein Albumin Globulin Albumin/Globulin Ratio Urine Color Urine Appearance Urine pH Ur Specific [place] Urine Protein Urine Glucose (UA) Urine Ketones Urine Blood Urine Nitrate Urine Bilirubin Urine Urobilinogen Ur Leukocyte Esterase Urine RBC Urine WBC Ur Epithelial Cells Urine Bacteria Hyaline Casts Urine Other Salicylates Urine Opiates Screen Urine Methadone Screen Acetaminophen < 10.0 L < 10.0 L Ur Barbiturates Screen Ur Phencyclidine Scrn Ur Amphetamines Screen U Benzodiazepines Scrn U Oth Cocaine Metabols U Cannabinoids Screen Alcohol, Quantitative 05/03/19 14:50 WBC RBC Hgb Hct MCV MCH MCHC RDW Plt Count MPV Neut % (Auto) Lymph % (Auto) [place] % (Auto) Eos % (Auto) Baso % (Auto) Lymph # (Auto) [place] # (Auto) Eos # (Auto) Baso # (Auto) Absolute Neuts (auto) PT INR APTT pCO2 pO2 HCO3 ABG pH ABG Total CO2 ABG O2 Saturation ABG O2 Content ABG Base Excess ABG Hemoglobin ABG Carboxyhemoglobin POC ABG HHb (Measured) ABG Methemoglobin ABG O2 Capacity Hgb O2 Saturation FiO2 Sodium Potassium Chloride Carbon Dioxide Anion Gap BUN Creatinine Est GFR ( Amer) Est GFR (Non-Af Amer) Random Glucose Calcium Phosphorus Magnesium Total Bilirubin AST ALT Alkaline Phosphatase Lactate Dehydrogenase Total Creatine Kinase Troponin I Total Protein Albumin Globulin Albumin/Globulin Ratio Urine Color Urine Appearance Urine pH Ur Specific [place] Urine Protein Urine Glucose (UA) Urine Ketones Urine Blood Urine Nitrate Urine Bilirubin Urine Urobilinogen Ur Leukocyte Esterase Urine RBC Urine WBC Ur Epithelial Cells Urine Bacteria Hyaline Casts Urine Other Salicylates Urine Opiates Screen Urine Methadone Screen Acetaminophen < 10.0 L Ur Barbiturates Screen Ur Phencyclidine Scrn Ur Amphetamines Screen U Benzodiazepines Scrn U Oth Cocaine Metabols U Cannabinoids Screen Alcohol, Quantitative Attending/Attestation - Attestation I have personally seen and examined this patient.: Yes I have fully participated in the care of the patient.: Yes I have reviewed all pertinent clinical information: Yes Notes (Text): 05/03/19 19:01 Seen and examined. discussed with resident. A&P as above.
[2019-05-03] MEDS ORDERED: DiphenhydrAMINE 50 mg/ml Inj ONE (05:14)
[2019-05-03 07:07] LABS: INR 1.22; PARTIAL THROMBOPLASTIN TIME 30.1 Seconds (26.9-38.3); PROTHROMBIN TIME 13.8 SECONDS (9.4-12.5)
[2019-05-03 07:31] LABS: BASO # 0.04 K/mm3 (0.0-2.0); BASO % 0.8 % (0.0-3.0); EOS # 0.4 (0.0-0.7); EOS % 8.5 % (1.5-5.0); HEMOGLOBIN 13.2 g/dL (12.0-16.0); LYMPH % 19.3 % (22.0-35.0); MEAN CELL VOLUME 88.8 fl (80.0-105.0); MEAN CORPUSCULAR HEMOGLOBIN 27.9 pg (25.0-35.0); MEAN CORPUSCULAR HGB CONC 31.4 g/dl (31.0-37.0); MEAN PLATELET VOLUME 10.8 fl (7.0-11.0); MONO # 0.5 (0.1-0.6); MONO % 9.4 % (1.0-6.0); RBC 4.73 10^6/uL (3.5-6.1); RED CELL DISTRIBUTION WIDTH 14.6 % (11.5-14.5); WHITE BLOOD COUNT 5.2 10^3/uL (4.5-11.0)
[2019-05-03 08:02] LABS: ALB/GLOB RATIO 0.9 (1.1-1.8); ALBUMIN 3.1 g/dL (3.0-4.8); ALT/SGPT 18 U/L (7-56); AST/SGOT 27 U/L (14-36); BLOOD UREA NITROGEN 14 mg/dL (7-21); CALCIUM 8.5 mg/dL (8.4-10.5); GFR NON-AFRICAN AMERICAN > 60
--- NOTE | 2019-05-03 09:02 | CP.CCUPN ---
<Bertram Coker - Last Filed: 05/03/19 12:42> CCU Subjective - Physician Review Subjective (Free Text): 05/03/19 09:01 Bertram Coker PGY-1 Critical Care Progress Note Patient seen and evaluated at bedside. Patient somnolent and unarousable at this time, after receiving Haldol and Ativan early this morning. Patient currently on nasal cannula receiving second bag of NAC as well as IVF. Further ROs unable to be obtained due to clinical condition at this time. CCU Objective - Vital Signs / Intake & Output Vital Signs (Last 4 hours): Vital Signs Pulse Resp BP Pulse Ox 05/03/19 08:55 44 L 162/74 H 05/03/19 06:40 47 L 20 100 05/03/19 06:30 48 L 23 100 05/03/19 06:20 47 L 19 100 05/03/19 06:10 46 L 18 100 05/03/19 06:00 45 L 18 137/78 99 05/03/19 05:50 46 L 17 100 05/03/19 05:40 46 L 20 100 05/03/19 05:30 48 L 17 180/85 H 90 L 05/03/19 05:27 17 Intake and Output (Last 8hrs): Intake & Output 05/02/19 05/03/19 05/03/19 22:59 06:59 14:59 Intake Total 1300 Output Total 350 Balance 950 Weight 90.718 kg 88.859 kg Intake: IV 1200 Left Antecubital 1200 Oral 100 Output: Urine 350 Urine, Voided 350 Other: Voiding Method Bedside Commode - Physical Exam Head: Positive for: Atraumatic, Normocephalic Pupils: Positive for: PERRL Conjunctiva: Positive for: Normal Mouth: Positive for: Moist Mucous Membranes Neck: Positive for: Normal Range of Motion Respiratory/Chest: Positive for: Clear to Auscultation, Good Air Exchange. Negative for: Respiratory Distress, Accessory Muscle Use Cardiovascular: Positive for: Regular Rate and Rhythm, Normal S1, S2. Negative for: Murmurs Abdomen: Negative for: Tenderness, Distention, Normal Bowel Sounds (hyperactive bowel sounds), Peritoneal Signs, Rebound, Guarding Back: Positive for: Normal Inspection Upper Extremity: Positive for: Normal Inspection. Negative for: Cyanosis, Edema Lower Extremity: Positive for: Normal Inspection. Negative for: Edema Neurological: Positive for: Motor Func Grossly Intact (extremities move spontaneously). Negative for: GCS=15, CN II-XII Intact, Speech Normal Skin: Positive for: Warm, Dry, Normal Color. Negative for: Rashes - Medications Active Medications: Active Medications Generic Name Dose Route Start Last Admin Trade Name Freq PRN Reason Stop Dose Admin Enoxaparin Sodium 40 mg 05/03/19 10:00 Lovenox SC DAILY PATTIE Protocol Famotidine 20 mg 05/03/19 10:00 Pepcid IVP DAILY PATTIE Sodium Chloride 1,000 mls @ 100 mls/hr 05/02/19 22:00 05/02/19 22:21 Sodium Chloride 0.9% IV 100 mls/hr .Q10H PATTIE Administration Acetylcysteine 8,768 mg/ 1,000 mls @ 62.5 mls/hr 05/03/19 05:28 05/03/19 08:55 Dextrose IV 05/03/19 21:27 62.5 mls/hr .Q16H ONE Administration Protocol Nicotine 1 patch 05/03/19 10:00 Nicoderm Cq TD DAILY PATTIE - Patient Studies Lab Studies: Lab Studies 05/03/19 05/03/19 05/03/19 Range/Units 06:45 06:45 06:45 WBC 5.2 (4.5-11.0) 10^3/uL RBC 4.73 (3.5-6.1) 10^6/uL Hgb 13.2 (12.0-16.0) g/dL Hct 42.0 (36.0-48.0) % MCV 88.8 (80.0-105.0) fl MCH 27.9 (25.0-35.0) pg MCHC 31.4 (31.0-37.0) g/dl RDW 14.6 H (11.5-14.5) % Plt Count 203 (120.0-450.0) 10^3/uL MPV 10.8 (7.0-11.0) fl Neut % (Auto) 62.0 (50.0-68.0) % Lymph % (Auto) 19.3 L (22.0-35.0) % [place] % (Auto) 9.4 H (1.0-6.0) % Eos % (Auto) 8.5 H (1.5-5.0) % Baso % (Auto) 0.8 (0.0-3.0) % Lymph # (Auto) 1.0 L (1.2-3.4) [place] # (Auto) 0.5 (0.1-0.6) Eos # (Auto) 0.4 (0.0-0.7) Baso # (Auto) 0.04 (0.0-2.0) K/mm3 Absolute Neuts (auto) 3.22 (1.4-6.5) PT 13.8 H (9.4-12.5) SECONDS INR 1.22 APTT 30.1 (26.9-38.3) Seconds pCO2 (35-45) mm/Hg pO2 (80-100) mm/Hg HCO3 (21-28) mmol/L ABG pH (7.35-7.45) ABG Total CO2 (22-28) mmol.L ABG O2 Saturation (95-98) % ABG O2 Content (15-23) ML/dl ABG Base Excess (-2.0-3.0) mmol/L ABG Hemoglobin (11.7-17.4) g/dL ABG Carboxyhemoglobin (0.5-1.5) % POC ABG HHb (Measured) (0-5) % ABG Methemoglobin (0.0-3.0) % ABG O2 Capacity (16-24) mL/dl Hgb O2 Saturation (95.0-98.0) % FiO2 % Sodium (132-148) mmol/L Potassium (3.6-5.0) mmol/L Chloride (98-107) mmol/L Carbon Dioxide (21-33) mmol/L Anion Gap (10-20) BUN (7-21) mg/dL Creatinine (0.7-1.2) mg/dl Est GFR ( Amer) Est GFR (Non-Af Amer) Random Glucose (70-110) mg/dL Calcium (8.4-10.5) mg/dL Phosphorus (2.5-4.5) mg/dL Magnesium (1.7-2.2) mg/dL Total Bilirubin (0.2-1.3) mg/dL AST (14-36) U/L ALT (7-56) U/L Alkaline Phosphatase (38-126) U/L Lactate Dehydrogenase (333-699) U/L Total Creatine Kinase (35-230) U/L Troponin I ng/mL Total Protein (5.8-8.3) g/dL Albumin (3.0-4.8) g/dL Globulin gm/dL Albumin/Globulin Ratio (1.1-1.8) Salicylates (2.0-20.0) mg/dL Urine Opiates Screen (NEGATIVE) Urine Methadone Screen (NEGATIVE) Acetaminophen < 10.0 L (10.0-20.0) ug/ml Ur Barbiturates Screen (NEGATIVE) Ur Phencyclidine Scrn (NEGATIVE) Ur Amphetamines Screen (NEGATIVE) U Benzodiazepines Scrn (NEGATIVE) U Oth Cocaine Metabols (NEGATIVE) U Cannabinoids Screen (NEGATIVE) Alcohol, Quantitative (0-10) mg/dL 05/03/19 05/02/19 05/02/19 Range/Units 06:45 23:00 23:00 WBC 5.9 (4.5-11.0) 10^3/uL RBC 4.73 (3.5-6.1) 10^6/uL Hgb 13.2 (12.0-16.0) g/dL Hct 42.0 (36.0-48.0) % MCV 88.8 (80.0-105.0) fl MCH 27.9 (25.0-35.0) pg MCHC 31.4 (31.0-37.0) g/dl RDW 14.7 H (11.5-14.5) % Plt Count 203 (120.0-450.0) 10^3/uL MPV 10.4 (7.0-11.0) fl Neut % (Auto) (50.0-68.0) % Lymph % (Auto) (22.0-35.0) % [place] % (Auto) (1.0-6.0) % Eos % (Auto) (1.5-5.0) % Baso % (Auto) (0.0-3.0) % Lymph # (Auto) (1.2-3.4) [place] # (Auto) (0.1-0.6) Eos # (Auto) (0.0-0.7) Baso # (Auto) (0.0-2.0) K/mm3 Absolute Neuts (auto) (1.4-6.5) PT (9.4-12.5) SECONDS INR APTT (26.9-38.3) Seconds pCO2 (35-45) mm/Hg pO2 (80-100) mm/Hg HCO3 (21-28) mmol/L ABG pH (7.35-7.45) ABG Total CO2 (22-28) mmol.L ABG O2 Saturation (95-98) % ABG O2 Content (15-23) ML/dl ABG Base Excess (-2.0-3.0) mmol/L ABG Hemoglobin (11.7-17.4) g/dL ABG Carboxyhemoglobin (0.5-1.5) % POC ABG HHb (Measured) (0-5) % ABG Methemoglobin (0.0-3.0) % ABG O2 Capacity (16-24) mL/dl Hgb O2 Saturation (95.0-98.0) % FiO2 % Sodium 140 (132-148) mmol/L Potassium 3.7 (3.6-5.0) mmol/L Chloride 103 (98-107) mmol/L Carbon Dioxide 31 (21-33) mmol/L Anion Gap 9 L (10-20) BUN 14 (7-21) mg/dL Creatinine 0.6 L (0.7-1.2) mg/dl Est GFR ( Amer) > 60 Est GFR (Non-Af Amer) > 60 Random Glucose 101 (70-110) mg/dL Calcium 8.5 (8.4-10.5) mg/dL Phosphorus 3.3 (2.5-4.5) mg/dL Magnesium 2.0 (1.7-2.2) mg/dL Total Bilirubin 0.4 (0.2-1.3) mg/dL AST 27 (14-36) U/L ALT 18 (7-56) U/L Alkaline Phosphatase 31 L D (38-126) U/L Lactate Dehydrogenase (333-699) U/L Total Creatine Kinase (35-230) U/L Troponin I ng/mL Total Protein 6.5 (5.8-8.3) g/dL Albumin 3.1 (3.0-4.8) g/dL Globulin 3.4 gm/dL Albumin/Globulin Ratio 0.9 L (1.1-1.8) Salicylates < 1 L (2.0-20.0) mg/dL Urine Opiates Screen (NEGATIVE) Urine Methadone Screen (NEGATIVE) Acetaminophen 36.0 H (10.0-20.0) ug/ml Ur Barbiturates Screen (NEGATIVE) Ur Phencyclidine Scrn (NEGATIVE) Ur Amphetamines Screen (NEGATIVE) U Benzodiazepines Scrn (NEGATIVE) U Oth Cocaine Metabols (NEGATIVE) U Cannabinoids Screen (NEGATIVE) Alcohol, Quantitative (0-10) mg/dL 05/02/19 05/02/19 05/02/19 Range/Units 23:00 23:00 22:15 WBC (4.5-11.0) 10^3/uL RBC (3.5-6.1) 10^6/uL Hgb (12.0-16.0) g/dL Hct (36.0-48.0) % MCV (80.0-105.0) fl MCH (25.0-35.0) pg MCHC (31.0-37.0) g/dl RDW (11.5-14.5) % Plt Count (120.0-450.0) 10^3/uL MPV (7.0-11.0) fl Neut % (Auto) (50.0-68.0) % Lymph % (Auto) (22.0-35.0) % [place] % (Auto) (1.0-6.0) % Eos % (Auto) (1.5-5.0) % Baso % (Auto) (0.0-3.0) % Lymph # (Auto) (1.2-3.4) [place] # (Auto) (0.1-0.6) Eos # (Auto) (0.0-0.7) Baso # (Auto) (0.0-2.0) K/mm3 Absolute Neuts (auto) (1.4-6.5) PT (9.4-12.5) SECONDS INR APTT (26.9-38.3) Seconds pCO2 44 (35-45) mm/Hg pO2 76.0 L (80-100) mm/Hg HCO3 29.9 H (21-28) mmol/L ABG pH 7.44 (7.35-7.45) ABG Total CO2 31.3 H (22-28) mmol.L ABG O2 Saturation 98.0 (95-98) % ABG O2 Content 17.6 (15-23) ML/dl ABG Base Excess 5.0 H (-2.0-3.0) mmol/L ABG Hemoglobin 13.7 (11.7-17.4) g/dL ABG Carboxyhemoglobin 5.7 H (0.5-1.5) % POC ABG HHb (Measured) 1.9 (0-5) % ABG Methemoglobin 1.0 (0.0-3.0) % ABG O2 Capacity 18.0 (16-24) mL/dl Hgb O2 Saturation 91.3 L (95.0-98.0) % FiO2 28.0 % Sodium 141 (132-148) mmol/L Potassium 3.6 (3.6-5.0) mmol/L Chloride 104 (98-107) mmol/L Carbon Dioxide 34 H (21-33) mmol/L Anion Gap 7 L (10-20) BUN 17 (7-21) mg/dL Creatinine 0.8 (0.7-1.2) mg/dl Est GFR ( Amer) > 60 Est GFR (Non-Af Amer) > 60 Random Glucose 92 (70-110) mg/dL Calcium 9.1 (8.4-10.5) mg/dL Phosphorus (2.5-4.5) mg/dL Magnesium (1.7-2.2) mg/dL Total Bilirubin 0.3 (0.2-1.3) mg/dL AST 34 (14-36) U/L ALT 16 (7-56) U/L Alkaline Phosphatase 73 (38-126) U/L Lactate Dehydrogenase 559 (333-699) U/L Total Creatine Kinase 201 (35-230) U/L Troponin I < 0.01 ng/mL Total Protein 7.4 (5.8-8.3) g/dL Albumin 3.7 (3.0-4.8) g/dL Globulin 3.7 gm/dL Albumin/Globulin Ratio 1.0 L (1.1-1.8) Salicylates (2.0-20.0) mg/dL Urine Opiates Screen (NEGATIVE) Urine Methadone Screen (NEGATIVE) Acetaminophen (10.0-20.0) ug/ml Ur Barbiturates Screen (NEGATIVE) Ur Phencyclidine Scrn (NEGATIVE) Ur Amphetamines Screen (NEGATIVE) U Benzodiazepines Scrn (NEGATIVE) U Oth Cocaine Metabols (NEGATIVE) U Cannabinoids Screen (NEGATIVE) Alcohol, Quantitative < 10 (0-10) mg/dL 05/02/19 Range/Units 22:04 WBC (4.5-11.0) 10^3/uL RBC (3.5-6.1) 10^6/uL Hgb (12.0-16.0) g/dL Hct (36.0-48.0) % MCV (80.0-105.0) fl MCH (25.0-35.0) pg MCHC (31.0-37.0) g/dl RDW (11.5-14.5) % Plt Count (120.0-450.0) 10^3/uL MPV (7.0-11.0) fl Neut % (Auto) (50.0-68.0) % Lymph % (Auto) (22.0-35.0) % [place] % (Auto) (1.0-6.0) % Eos % (Auto) (1.5-5.0) % Baso % (Auto) (0.0-3.0) % Lymph # (Auto) (1.2-3.4) [place] # (Auto) (0.1-0.6) Eos # (Auto) (0.0-0.7) Baso # (Auto) (0.0-2.0) K/mm3 Absolute Neuts (auto) (1.4-6.5) PT (9.4-12.5) SECONDS INR APTT (26.9-38.3) Seconds pCO2 (35-45) mm/Hg pO2 (80-100) mm/Hg HCO3 (21-28) mmol/L ABG pH (7.35-7.45) ABG Total CO2 (22-28) mmol.L ABG O2 Saturation (95-98) % ABG O2 Content (15-23) ML/dl ABG Base Excess (-2.0-3.0) mmol/L ABG Hemoglobin (11.7-17.4) g/dL ABG Carboxyhemoglobin (0.5-1.5) % POC ABG HHb (Measured) (0-5) % ABG Methemoglobin (0.0-3.0) % ABG O2 Capacity (16-24) mL/dl Hgb O2 Saturation (95.0-98.0) % FiO2 % Sodium (132-148) mmol/L Potassium (3.6-5.0) mmol/L Chloride (98-107) mmol/L Carbon Dioxide (21-33) mmol/L Anion Gap (10-20) BUN (7-21) mg/dL Creatinine (0.7-1.2) mg/dl Est GFR ( Amer) Est GFR (Non-Af Amer) Random Glucose (70-110) mg/dL Calcium (8.4-10.5) mg/dL Phosphorus (2.5-4.5) mg/dL Magnesium (1.7-2.2) mg/dL Total Bilirubin (0.2-1.3) mg/dL AST (14-36) U/L ALT (7-56) U/L Alkaline Phosphatase (38-126) U/L Lactate Dehydrogenase (333-699) U/L Total Creatine Kinase (35-230) U/L Troponin I ng/mL Total Protein (5.8-8.3) g/dL Albumin (3.0-4.8) g/dL Globulin gm/dL Albumin/Globulin Ratio (1.1-1.8) Salicylates (2.0-20.0) mg/dL Urine Opiates Screen Positive H (NEGATIVE) Urine Methadone Screen Negative (NEGATIVE) Acetaminophen (10.0-20.0) ug/ml Ur Barbiturates Screen Negative (NEGATIVE) Ur Phencyclidine Scrn Negative (NEGATIVE) Ur Amphetamines Screen Negative (NEGATIVE) U Benzodiazepines Scrn Positive H (NEGATIVE) U Oth Cocaine Metabols Negative (NEGATIVE) U Cannabinoids Screen Negative (NEGATIVE) Alcohol, Quantitative (0-10) mg/dL Laboratory Results - last 24 hr 05/02/19 05/02/19 05/02/19 22:04 22:15 23:00 WBC RBC Hgb Hct MCV MCH MCHC RDW Plt Count MPV Neut % (Auto) Lymph % (Auto) [place] % (Auto) Eos % (Auto) Baso % (Auto) Lymph # (Auto) [place] # (Auto) Eos # (Auto) Baso # (Auto) Absolute Neuts (auto) PT INR APTT pCO2 44 pO2 76.0 L HCO3 29.9 H ABG pH 7.44 ABG Total CO2 31.3 H ABG O2 Saturation 98.0 ABG O2 Content 17.6 ABG Base Excess 5.0 H ABG Hemoglobin 13.7 ABG Carboxyhemoglobin 5.7 H POC ABG HHb (Measured) 1.9 ABG Methemoglobin 1.0 ABG O2 Capacity 18.0 Hgb O2 Saturation 91.3 L FiO2 28.0 Sodium 141 Potassium 3.6 Chloride 104 Carbon Dioxide 34 H Anion Gap 7 L BUN 17 Creatinine 0.8 Est GFR ( Amer) > 60 Est GFR (Non-Af Amer) > 60 Random Glucose 92 Calcium 9.1 Phosphorus Magnesium Total Bilirubin 0.3 AST 34 ALT 16 Alkaline Phosphatase 73 Lactate Dehydrogenase 559 Total Creatine Kinase 201 Troponin I < 0.01 Total Protein 7.4 Albumin 3.7 Globulin 3.7 Albumin/Globulin Ratio 1.0 L Salicylates Urine Opiates Screen Positive H Urine Methadone Screen Negative Acetaminophen Ur Barbiturates Screen Negative Ur Phencyclidine Scrn Negative Ur Amphetamines Screen Negative U Benzodiazepines Scrn Positive H U Oth Cocaine Metabols Negative U Cannabinoids Screen Negative Alcohol, Quantitative 05/02/19 05/02/19 05/02/19 23:00 23:00 23:00 WBC 5.9 RBC 4.73 Hgb 13.2 Hct 42.0 MCV 88.8 MCH 27.9 MCHC 31.4 RDW 14.7 H Plt Count 203 MPV 10.4 Neut % (Auto) Lymph % (Auto) [place] % (Auto) Eos % (Auto) Baso % (Auto) Lymph # (Auto) [place] # (Auto) Eos # (Auto) Baso # (Auto) Absolute Neuts (auto) PT INR APTT pCO2 pO2 HCO3 ABG pH ABG Total CO2 ABG O2 Saturation ABG O2 Content ABG Base Excess ABG Hemoglobin ABG Carboxyhemoglobin POC ABG HHb (Measured) ABG Methemoglobin ABG O2 Capacity Hgb O2 Saturation FiO2 Sodium Potassium Chloride Carbon Dioxide Anion Gap BUN Creatinine Est GFR ( Amer) Est GFR (Non-Af Amer) Random Glucose Calcium Phosphorus Magnesium Total Bilirubin AST ALT Alkaline Phosphatase Lactate Dehydrogenase Total Creatine Kinase Troponin I Total Protein Albumin Globulin Albumin/Globulin Ratio Salicylates < 1 L Urine Opiates Screen Urine Methadone Screen Acetaminophen 36.0 H Ur Barbiturates Screen Ur Phencyclidine Scrn Ur Amphetamines Screen U Benzodiazepines Scrn U Oth Cocaine Metabols U Cannabinoids Screen Alcohol, Quantitative < 10 05/03/19 05/03/19 05/03/19 06:45 06:45 06:45 WBC 5.2 RBC 4.73 Hgb 13.2 Hct 42.0 MCV 88.8 MCH 27.9 MCHC 31.4 RDW 14.6 H Plt Count 203 MPV 10.8 Neut % (Auto) 62.0 Lymph % (Auto) 19.3 L [place] % (Auto) 9.4 H Eos % (Auto) 8.5 H Baso % (Auto) 0.8 Lymph # (Auto) 1.0 L [place] # (Auto) 0.5 Eos # (Auto) 0.4 Baso # (Auto) 0.04 Absolute Neuts (auto) 3.22 PT INR APTT pCO2 pO2 HCO3 ABG pH ABG Total CO2 ABG O2 Saturation ABG O2 Content ABG Base Excess ABG Hemoglobin ABG Carboxyhemoglobin POC ABG HHb (Measured) ABG Methemoglobin ABG O2 Capacity Hgb O2 Saturation FiO2 Sodium 140 Potassium 3.7 Chloride 103 Carbon Dioxide 31 Anion Gap 9 L BUN 14 Creatinine 0.6 L Est GFR ( Amer) > 60 Est GFR (Non-Af Amer) > 60 Random Glucose 101 Calcium 8.5 Phosphorus 3.3 Magnesium 2.0 Total Bilirubin 0.4 AST 27 ALT 18 Alkaline Phosphatase 31 L D Lactate Dehydrogenase Total Creatine Kinase Troponin I Total Protein 6.5 Albumin 3.1 Globulin 3.4 Albumin/Globulin Ratio 0.9 L Salicylates Urine Opiates Screen Urine Methadone Screen Acetaminophen < 10.0 L Ur Barbiturates Screen Ur Phencyclidine Scrn Ur Amphetamines Screen U Benzodiazepines Scrn U Oth Cocaine Metabols U Cannabinoids Screen Alcohol, Quantitative 05/03/19 06:45 WBC RBC Hgb Hct MCV MCH MCHC RDW Plt Count MPV Neut % (Auto) Lymph % (Auto) [place] % (Auto) Eos % (Auto) Baso % (Auto) Lymph # (Auto) [place] # (Auto) Eos # (Auto) Baso # (Auto) Absolute Neuts (auto) PT 13.8 H INR 1.22 APTT 30.1 pCO2 pO2 HCO3 ABG pH ABG Total CO2 ABG O2 Saturation ABG O2 Content ABG Base Excess ABG Hemoglobin ABG Carboxyhemoglobin POC ABG HHb (Measured) ABG Methemoglobin ABG O2 Capacity Hgb O2 Saturation FiO2 Sodium Potassium Chloride Carbon Dioxide Anion Gap BUN Creatinine Est GFR ( Amer) Est GFR (Non-Af Amer) Random Glucose Calcium Phosphorus Magnesium Total Bilirubin AST ALT Alkaline Phosphatase Lactate Dehydrogenase Total Creatine Kinase Troponin I Total Protein Albumin Globulin Albumin/Globulin Ratio Salicylates Urine Opiates Screen Urine Methadone Screen Acetaminophen Ur Barbiturates Screen Ur Phencyclidine Scrn Ur Amphetamines Screen U Benzodiazepines Scrn U Oth Cocaine Metabols U Cannabinoids Screen Alcohol, Quantitative Review of Systems - Review of Systems Systems not reviewed;Unavailable: Altered Mental Status Critical Care Progress Note - Nutrition Nutrition: Nutrition Category Date Time Status NPO Diet [DIET] Diets 05/03/19 Breakfast Ordered Assessment/Plan - Assessment and Plan (Free Text) Assessment: 54 y/o F with unknown PMH admitted to ICU for likely opioid and Tylenol intoxication s/p 5 doses narcan administration in the field. Posion control notified. Neuro: 05/03 CT head- no acute ischemic changes, small ventricles, f/u final report -Utox pos for opioids, benzos (prior to Ativan in ED) -Tylenol level 36 initially, <10 this AM, f/u repeat q4h -NAC protocol initiated, 3rd dose upcoming -AAOx0, somnolent, no response to sternal rub -Aspiration, seizure and fall precautions in place -Monitor neuro status. -Reorient patient as necessary. Psych: - Possible suicide attempt - Dr Kim on consult Cardio: -RRR, normotensive, no signs of HD compromise -Maintain MAP>65. -Monitor for S/S, HD compromise. Pulm: -No signs of respiratory distress. 99% on nasal cannula -CTA B/L -Maintain O2 saturation>90%. -O2 NC PRN 05/03 CXR: no congestion or infiltrates, f/u final report -Elevate bed to 30 degrees GI: -NPO -Liver enzymes, alk phos WNL -F/U LFTs this evening per poison control -Pepcid /Nephro: -CW/IVF NS @ 100 cc/hr -BUN/Cr stable -Replete electrolytes as needed. -Maintain euvolemia. Endocrinology: -Random glucose: 101 -Maintain euglycemia. Heme/Onc: -H/H stable -No signs of HD compromise. -Continue monitoring H/H ID: -Afebrile, no leukocytosis -Monitor for signs and symptoms of infection. DVT prophylaxis: Lovenox GI prophylaxis: Pepcid Patient seen, case reviewed and plan approved by Dr. Alicia Santiago. Bertram Coker, PGY-1 <Lesly Santiago - Last Filed: 05/03/19 16:01> CCU Objective - Vital Signs / Intake & Output Vital Signs (Last 4 hours): Vital Signs Pulse Resp BP Pulse Ox 05/03/19 14:50 60 46 H 97 05/03/19 14:40 60 29 H 97 05/03/19 14:30 66 29 H 97 05/03/19 14:20 66 32 H 97 05/03/19 14:10 63 31 H 98 05/03/19 14:00 74 42 H 176/95 H 97 05/03/19 13:50 62 95 05/03/19 13:40 54 L 35 H 97 05/03/19 13:30 67 41 H 98 05/03/19 13:20 69 36 H 94 L 05/03/19 13:17 64 35 H 200/109 H 96 05/03/19 13:10 60 36 H 97 05/03/19 13:01 72 30 H 193/118 H 85 L 05/03/19 13:00 57 L 27 H 97 05/03/19 12:50 67 26 H 97 05/03/19 12:40 57 L 43 H 96 05/03/19 12:38 57 L 28 H 164/108 H 97 05/03/19 12:30 61 41 H 98 05/03/19 12:20 59 L 30 H 97 05/03/19 12:10 55 L 31 H 99 Intake and Output (Last 8hrs): Intake & Output 05/03/19 05/03/19 05/03/19 06:59 14:59 22:59 Intake Total 1300 Output Total 350 Balance 950 Weight 88.859 kg Intake: IV 1200 Left Antecubital 1200 Oral 100 Output: Urine 350 Urine, Voided 350 Other: Voiding Method Bedside Commode - Medications Active Medications: Active Medications Generic Name Dose Route Start Last Admin Trade Name Freq PRN Reason Stop Dose Admin Clonidine HCl 0.3 mg 05/03/19 16:00 Catapres PO Q8H PATTIE Enoxaparin Sodium 40 mg 05/03/19 10:00 05/03/19 09:29 Lovenox SC 40 mg DAILY PATTIE Administration Protocol Famotidine 20 mg 05/03/19 10:00 05/03/19 09:28 Pepcid IVP 20 mg DAILY PATTIE Administration Hydralazine HCl 10 mg 05/03/19 11:02 05/03/19 11:17 Apresoline IVP 10 mg Q6 PRN Administration Systolic Blood Pressure Lisinopril 10 mg 05/04/19 10:00 Zestril PO DAILY PATTIE Lisinopril 5 mg 05/03/19 15:58 Zestril PO 05/03/19 15:59 ONCE ONE Nicotine 1 patch 05/03/19 10:00 05/03/19 09:28 Nicoderm Cq TD 1 patch DAILY PATTIE Administration - Patient Studies Lab Studies: Lab Studies 05/03/19 05/03/19 05/03/19 Range/Units 14:50 10:45 06:45 WBC (4.5-11.0) 10^3/uL RBC (3.5-6.1) 10^6/uL Hgb (12.0-16.0) g/dL Hct (36.0-48.0) % MCV (80.0-105.0) fl MCH (25.0-35.0) pg MCHC (31.0-37.0) g/dl RDW (11.5-14.5) % Plt Count (120.0-450.0) 10^3/uL MPV (7.0-11.0) fl Neut % (Auto) (50.0-68.0) % Lymph % (Auto) (22.0-35.0) % [place] % (Auto) (1.0-6.0) % Eos % (Auto) (1.5-5.0) % Baso % (Auto) (0.0-3.0) % Lymph # (Auto) (1.2-3.4) [place] # (Auto) (0.1-0.6) Eos # (Auto) (0.0-0.7) Baso # (Auto) (0.0-2.0) K/mm3 Absolute Neuts (auto) (1.4-6.5) PT 13.8 H (9.4-12.5) SECONDS INR 1.22 APTT 30.1 (26.9-38.3) Seconds pCO2 (35-45) mm/Hg pO2 (80-100) mm/Hg HCO3 (21-28) mmol/L ABG pH (7.35-7.45) ABG Total CO2 (22-28) mmol.L ABG O2 Saturation (95-98) % ABG O2 Content (15-23) ML/dl ABG Base Excess (-2.0-3.0) mmol/L ABG Hemoglobin (11.7-17.4) g/dL ABG Carboxyhemoglobin (0.5-1.5) % POC ABG HHb (Measured) (0-5) % ABG Methemoglobin (0.0-3.0) % ABG O2 Capacity (16-24) mL/dl Hgb O2 Saturation (95.0-98.0) % FiO2 % Sodium (132-148) mmol/L Potassium (3.6-5.0) mmol/L Chloride (98-107) mmol/L Carbon Dioxide (21-33) mmol/L Anion Gap (10-20) BUN (7-21) mg/dL Creatinine (0.7-1.2) mg/dl Est GFR ( Amer) Est GFR (Non-Af Amer) Random Glucose (70-110) mg/dL Calcium (8.4-10.5) mg/dL Phosphorus (2.5-4.5) mg/dL Magnesium (1.7-2.2) mg/dL Total Bilirubin (0.2-1.3) mg/dL AST (14-36) U/L ALT (7-56) U/L Alkaline Phosphatase (38-126) U/L Lactate Dehydrogenase (333-699) U/L Total Creatine Kinase (35-230) U/L Troponin I ng/mL Total Protein (5.8-8.3) g/dL Albumin (3.0-4.8) g/dL Globulin gm/dL Albumin/Globulin Ratio (1.1-1.8) Urine Color (YELLOW) Urine Appearance (CLEAR) Urine pH (4.7-8.0) Ur Specific Ruth (1.005-1.035) Urine Protein (<30 mg/dL) mg/dL Urine Glucose (UA) (NEGATIVE) mg/dL Urine Ketones (NEGATIVE) mg/dL Urine Blood (NEGATIVE) Urine Nitrate (NEGATIVE) Urine Bilirubin (NEGATIVE) Urine Urobilinogen (<1 E.U./dL) E.U./dL Ur Leukocyte Esterase (NEGATIVE) Madeline/uL Urine RBC (0-2) /hpf Urine WBC (0-6) /hpf Ur Epithelial Cells (0-5) /hpf Urine Bacteria (NONE) /hpf Hyaline Casts (NONE) /hpf Urine Other /hpf Salicylates (2.0-20.0) mg/dL Urine Opiates Screen (NEGATIVE) Urine Methadone Screen (NEGATIVE) Acetaminophen < 10.0 L < 10.0 L (10.0-20.0) ug/ml Ur Barbiturates Screen (NEGATIVE) Ur Phencyclidine Scrn (NEGATIVE) Ur Amphetamines Screen (NEGATIVE) U Benzodiazepines Scrn (NEGATIVE) U Oth Cocaine Metabols (NEGATIVE) U Cannabinoids Screen (NEGATIVE) Alcohol, Quantitative (0-10) mg/dL 05/03/19 05/03/19 05/03/19 Range/Units 06:45 06:45 06:45 WBC 5.2 (4.5-11.0) 10^3/uL RBC 4.73 (3.5-6.1) 10^6/uL Hgb 13.2 (12.0-16.0) g/dL Hct 42.0 (36.0-48.0) % MCV 88.8 (80.0-105.0) fl MCH 27.9 (25.0-35.0) pg MCHC 31.4 (31.0-37.0) g/dl RDW 14.6 H (11.5-14.5) % Plt Count 203 (120.0-450.0) 10^3/uL MPV 10.8 (7.0-11.0) fl Neut % (Auto) 62.0 (50.0-68.0) % Lymph % (Auto) 19.3 L (22.0-35.0) % [place] % (Auto) 9.4 H (1.0-6.0) % Eos % (Auto) 8.5 H (1.5-5.0) % Baso % (Auto) 0.8 (0.0-3.0) % Lymph # (Auto) 1.0 L (1.2-3.4) [place] # (Auto) 0.5 (0.1-0.6) Eos # (Auto) 0.4 (0.0-0.7) Baso # (Auto) 0.04 (0.0-2.0) K/mm3 Absolute Neuts (auto) 3.22 (1.4-6.5) PT (9.4-12.5) SECONDS INR APTT (26.9-38.3) Seconds pCO2 (35-45) mm/Hg pO2 (80-100) mm/Hg HCO3 (21-28) mmol/L ABG pH (7.35-7.45) ABG Total CO2 (22-28) mmol.L ABG O2 Saturation (95-98) % ABG O2 Content (15-23) ML/dl ABG Base Excess (-2.0-3.0) mmol/L ABG Hemoglobin (11.7-17.4) g/dL ABG Carboxyhemoglobin (0.5-1.5) % POC ABG HHb (Measured) (0-5) % ABG Methemoglobin (0.0-3.0) % ABG O2 Capacity (16-24) mL/dl Hgb O2 Saturation (95.0-98.0) % FiO2 % Sodium 140 (132-148) mmol/L Potassium 3.7 (3.6-5.0) mmol/L Chloride 103 (98-107) mmol/L Carbon Dioxide 31 (21-33) mmol/L Anion Gap 9 L (10-20) BUN 14 (7-21) mg/dL Creatinine 0.6 L (0.7-1.2) mg/dl Est GFR ( Amer) > 60 Est GFR (Non-Af Amer) > 60 Random Glucose 101 (70-110) mg/dL Calcium 8.5 (8.4-10.5) mg/dL Phosphorus 3.3 (2.5-4.5) mg/dL Magnesium 2.0 (1.7-2.2) mg/dL Total Bilirubin 0.4 (0.2-1.3) mg/dL AST 27 (14-36) U/L ALT 18 (7-56) U/L Alkaline Phosphatase 31 L D (38-126) U/L Lactate Dehydrogenase (333-699) U/L Total Creatine Kinase (35-230) U/L Troponin I ng/mL Total Protein 6.5 (5.8-8.3) g/dL Albumin 3.1 (3.0-4.8) g/dL Globulin 3.4 gm/dL Albumin/Globulin Ratio 0.9 L (1.1-1.8) Urine Color (YELLOW) Urine Appearance (CLEAR) Urine pH (4.7-8.0) Ur Specific Ruth (1.005-1.035) Urine Protein (<30 mg/dL) mg/dL Urine Glucose (UA) (NEGATIVE) mg/dL Urine Ketones (NEGATIVE) mg/dL Urine Blood (NEGATIVE) Urine Nitrate (NEGATIVE) Urine Bilirubin (NEGATIVE) Urine Urobilinogen (<1 E.U./dL) E.U./dL Ur Leukocyte Esterase (NEGATIVE) Madeline/uL Urine RBC (0-2) /hpf Urine WBC (0-6) /hpf Ur Epithelial Cells (0-5) /hpf Urine Bacteria (NONE) /hpf Hyaline Casts (NONE) /hpf Urine Other /hpf Salicylates (2.0-20.0) mg/dL Urine Opiates Screen (NEGATIVE) Urine Methadone Screen (NEGATIVE) Acetaminophen < 10.0 L (10.0-20.0) ug/ml Ur Barbiturates Screen (NEGATIVE) Ur Phencyclidine Scrn (NEGATIVE) Ur Amphetamines Screen (NEGATIVE) U Benzodiazepines Scrn (NEGATIVE) U Oth Cocaine Metabols (NEGATIVE) U Cannabinoids Screen (NEGATIVE) Alcohol, Quantitative (0-10) mg/dL 05/03/19 05/02/19 05/02/19 Range/Units 01:35 23:00 23:00 WBC 5.9 (4.5-11.0) 10^3/uL RBC 4.73 (3.5-6.1) 10^6/uL Hgb 13.2 (12.0-16.0) g/dL Hct 42.0 (36.0-48.0) % MCV 88.8 (80.0-105.0) fl MCH 27.9 (25.0-35.0) pg MCHC 31.4 (31.0-37.0) g/dl RDW 14.7 H (11.5-14.5) % Plt Count 203 (120.0-450.0) 10^3/uL MPV 10.4 (7.0-11.0) fl Neut % (Auto) (50.0-68.0) % Lymph % (Auto) (22.0-35.0) % [place] % (Auto) (1.0-6.0) % Eos % (Auto) (1.5-5.0) % Baso % (Auto) (0.0-3.0) % Lymph # (Auto) (1.2-3.4) [place] # (Auto) (0.1-0.6) Eos # (Auto) (0.0-0.7) Baso # (Auto) (0.0-2.0) K/mm3 Absolute Neuts (auto) (1.4-6.5) PT (9.4-12.5) SECONDS INR APTT (26.9-38.3) Seconds pCO2 (35-45) mm/Hg pO2 (80-100) mm/Hg HCO3 (21-28) mmol/L ABG pH (7.35-7.45) ABG Total CO2 (22-28) mmol.L ABG O2 Saturation (95-98) % ABG O2 Content (15-23) ML/dl ABG Base Excess (-2.0-3.0) mmol/L ABG Hemoglobin (11.7-17.4) g/dL ABG Carboxyhemoglobin (0.5-1.5) % POC ABG HHb (Measured) (0-5) % ABG Methemoglobin (0.0-3.0) % ABG O2 Capacity (16-24) mL/dl Hgb O2 Saturation (95.0-98.0) % FiO2 % Sodium (132-148) mmol/L Potassium (3.6-5.0) mmol/L Chloride (98-107) mmol/L Carbon Dioxide (21-33) mmol/L Anion Gap (10-20) BUN (7-21) mg/dL Creatinine (0.7-1.2) mg/dl Est GFR ( Amer) Est GFR (Non-Af Amer) Random Glucose (70-110) mg/dL Calcium (8.4-10.5) mg/dL Phosphorus (2.5-4.5) mg/dL Magnesium (1.7-2.2) mg/dL Total Bilirubin (0.2-1.3) mg/dL AST (14-36) U/L ALT (7-56) U/L Alkaline Phosphatase (38-126) U/L Lactate Dehydrogenase (333-699) U/L Total Creatine Kinase (35-230) U/L Troponin I ng/mL Total Protein (5.8-8.3) g/dL Albumin (3.0-4.8) g/dL Globulin gm/dL Albumin/Globulin Ratio (1.1-1.8) Urine Color Yellow (YELLOW) Urine Appearance Clear (CLEAR) Urine pH 6.5 (4.7-8.0) Ur Specific Ruth 1.020 (1.005-1.035) Urine Protein Negative (<30 mg/dL) mg/dL Urine Glucose (UA) Negative (NEGATIVE) mg/dL Urine Ketones Negative (NEGATIVE) mg/dL Urine Blood Small H (NEGATIVE) Urine Nitrate Negative (NEGATIVE) Urine Bilirubin Negative (NEGATIVE) Urine Urobilinogen 0.2 (<1 E.U./dL) E.U./dL Ur Leukocyte Esterase Negative (NEGATIVE) Madeline/uL Urine RBC 2 - 5 H (0-2) /hpf Urine WBC 0 - 2 (0-6) /hpf Ur Epithelial Cells 3 - 4 (0-5) /hpf Urine Bacteria Small (NONE) /hpf Hyaline Casts 0 - 2 (NONE) /hpf Urine Other Fiber /hpf Salicylates < 1 L (2.0-20.0) mg/dL Urine Opiates Screen (NEGATIVE) Urine Methadone Screen (NEGATIVE) Acetaminophen 36.0 H (10.0-20.0) ug/ml Ur Barbiturates Screen (NEGATIVE) Ur Phencyclidine Scrn (NEGATIVE) Ur Amphetamines Screen (NEGATIVE) U Benzodiazepines Scrn (NEGATIVE) U Oth Cocaine Metabols (NEGATIVE) U Cannabinoids Screen (NEGATIVE) Alcohol, Quantitative (0-10) mg/dL 05/02/19 05/02/19 05/02/19 Range/Units 23:00 23:00 22:15 WBC (4.5-11.0) 10^3/uL RBC (3.5-6.1) 10^6/uL Hgb (12.0-16.0) g/dL Hct (36.0-48.0) % MCV (80.0-105.0) fl MCH (25.0-35.0) pg MCHC (31.0-37.0) g/dl RDW (11.5-14.5) % Plt Count (120.0-450.0) 10^3/uL MPV (7.0-11.0) fl Neut % (Auto) (50.0-68.0) % Lymph % (Auto) (22.0-35.0) % [place] % (Auto) (1.0-6.0) % Eos % (Auto) (1.5-5.0) % Baso % (Auto) (0.0-3.0) % Lymph # (Auto) (1.2-3.4) [place] # (Auto) (0.1-0.6) Eos # (Auto) (0.0-0.7) Baso # (Auto) (0.0-2.0) K/mm3 Absolute Neuts (auto) (1.4-6.5) PT (9.4-12.5) SECONDS INR APTT (26.9-38.3) Seconds pCO2 44 (35-45) mm/Hg pO2 76.0 L (80-100) mm/Hg HCO3 29.9 H (21-28) mmol/L ABG pH 7.44 (7.35-7.45) ABG Total CO2 31.3 H (22-28) mmol.L ABG O2 Saturation 98.0 (95-98) % ABG O2 Content 17.6 (15-23) ML/dl ABG Base Excess 5.0 H (-2.0-3.0) mmol/L ABG Hemoglobin 13.7 (11.7-17.4) g/dL ABG Carboxyhemoglobin 5.7 H (0.5-1.5) % POC ABG HHb (Measured) 1.9 (0-5) % ABG Methemoglobin 1.0 (0.0-3.0) % ABG O2 Capacity 18.0 (16-24) mL/dl Hgb O2 Saturation 91.3 L (95.0-98.0) % FiO2 28.0 % Sodium 141 (132-148) mmol/L Potassium 3.6 (3.6-5.0) mmol/L Chloride 104 (98-107) mmol/L Carbon Dioxide 34 H (21-33) mmol/L Anion Gap 7 L (10-20) BUN 17 (7-21) mg/dL Creatinine 0.8 (0.7-1.2) mg/dl Est GFR ( Amer) > 60 Est GFR (Non-Af Amer) > 60 Random Glucose 92 (70-110) mg/dL Calcium 9.1 (8.4-10.5) mg/dL Phosphorus (2.5-4.5) mg/dL Magnesium (1.7-2.2) mg/dL Total Bilirubin 0.3 (0.2-1.3) mg/dL AST 34 (14-36) U/L ALT 16 (7-56) U/L Alkaline Phosphatase 73 (38-126) U/L Lactate Dehydrogenase 559 (333-699) U/L Total Creatine Kinase 201 (35-230) U/L Troponin I < 0.01 ng/mL Total Protein 7.4 (5.8-8.3) g/dL Albumin 3.7 (3.0-4.8) g/dL Globulin 3.7 gm/dL Albumin/Globulin Ratio 1.0 L (1.1-1.8) Urine Color (YELLOW) Urine Appearance (CLEAR) Urine pH (4.7-8.0) Ur Specific Ruth (1.005-1.035) Urine Protein (<30 mg/dL) mg/dL Urine Glucose (UA) (NEGATIVE) mg/dL Urine Ketones (NEGATIVE) mg/dL Urine Blood (NEGATIVE) Urine Nitrate (NEGATIVE) Urine Bilirubin (NEGATIVE) Urine Urobilinogen (<1 E.U./dL) E.U./dL Ur Leukocyte Esterase (NEGATIVE) Madeline/uL Urine RBC (0-2) /hpf Urine WBC (0-6) /hpf Ur Epithelial Cells (0-5) /hpf Urine Bacteria (NONE) /hpf Hyaline Casts (NONE) /hpf Urine Other /hpf Salicylates (2.0-20.0) mg/dL Urine Opiates Screen (NEGATIVE) Urine Methadone Screen (NEGATIVE) Acetaminophen (10.0-20.0) ug/ml Ur Barbiturates Screen (NEGATIVE) Ur Phencyclidine Scrn (NEGATIVE) Ur Amphetamines Screen (NEGATIVE) U Benzodiazepines Scrn (NEGATIVE) U Oth Cocaine Metabols (NEGATIVE) U Cannabinoids Screen (NEGATIVE) Alcohol, Quantitative < 10 (0-10) mg/dL 05/02/19 Range/Units 22:04 WBC (4.5-11.0) 10^3/uL RBC (3.5-6.1) 10^6/uL Hgb (12.0-16.0) g/dL Hct (36.0-48.0) % MCV (80.0-105.0) fl MCH (25.0-35.0) pg MCHC (31.0-37.0) g/dl RDW (11.5-14.5) % Plt Count (120.0-450.0) 10^3/uL MPV (7.0-11.0) fl Neut % (Auto) (50.0-68.0) % Lymph % (Auto) (22.0-35.0) % [place] % (Auto) (1.0-6.0) % Eos % (Auto) (1.5-5.0) % Baso % (Auto) (0.0-3.0) % Lymph # (Auto) (1.2-3.4) [place] # (Auto) (0.1-0.6) Eos # (Auto) (0.0-0.7) Baso # (Auto) (0.0-2.0) K/mm3 Absolute Neuts (auto) (1.4-6.5) PT (9.4-12.5) SECONDS INR APTT (26.9-38.3) Seconds pCO2 (35-45) mm/Hg pO2 (80-100) mm/Hg HCO3 (21-28) mmol/L ABG pH (7.35-7.45) ABG Total CO2 (22-28) mmol.L ABG O2 Saturation (95-98) % ABG O2 Content (15-23) ML/dl ABG Base Excess (-2.0-3.0) mmol/L ABG Hemoglobin (11.7-17.4) g/dL ABG Carboxyhemoglobin (0.5-1.5) % POC ABG HHb (Measured) (0-5) % ABG Methemoglobin (0.0-3.0) % ABG O2 Capacity (16-24) mL/dl Hgb O2 Saturation (95.0-98.0) % FiO2 % Sodium (132-148) mmol/L Potassium (3.6-5.0) mmol/L Chloride (98-107) mmol/L Carbon Dioxide (21-33) mmol/L Anion Gap (10-20) BUN (7-21) mg/dL Creatinine (0.7-1.2) mg/dl Est GFR ( Amer) Est GFR (Non-Af Amer) Random Glucose (70-110) mg/dL Calcium (8.4-10.5) mg/dL Phosphorus (2.5-4.5) mg/dL Magnesium (1.7-2.2) mg/dL Total Bilirubin (0.2-1.3) mg/dL AST (14-36) U/L ALT (7-56) U/L Alkaline Phosphatase (38-126) U/L Lactate Dehydrogenase (333-699) U/L Total Creatine Kinase (35-230) U/L Troponin I ng/mL Total Protein (5.8-8.3) g/dL Albumin (3.0-4.8) g/dL Globulin gm/dL Albumin/Globulin Ratio (1.1-1.8) Urine Color (YELLOW) Urine Appearance (CLEAR) Urine pH (4.7-8.0) Ur Specific Ruth (1.005-1.035) Urine Protein (<30 mg/dL) mg/dL Urine Glucose (UA) (NEGATIVE) mg/dL Urine Ketones (NEGATIVE) mg/dL Urine Blood (NEGATIVE) Urine Nitrate (NEGATIVE) Urine Bilirubin (NEGATIVE) Urine Urobilinogen (<1 E.U./dL) E.U./dL Ur Leukocyte Esterase (NEGATIVE) Madeline/uL Urine RBC (0-2) /hpf Urine WBC (0-6) /hpf Ur Epithelial Cells (0-5) /hpf Urine Bacteria (NONE) /hpf Hyaline Casts (NONE) /hpf Urine Other /hpf Salicylates (2.0-20.0) mg/dL Urine Opiates Screen Positive H (NEGATIVE) Urine Methadone Screen Negative (NEGATIVE) Acetaminophen (10.0-20.0) ug/ml Ur Barbiturates Screen Negative (NEGATIVE) Ur Phencyclidine Scrn Negative (NEGATIVE) Ur Amphetamines Screen Negative (NEGATIVE) U Benzodiazepines Scrn Positive H (NEGATIVE) U Oth Cocaine Metabols Negative (NEGATIVE) U Cannabinoids Screen Negative (NEGATIVE) Alcohol, Quantitative (0-10) mg/dL Laboratory Results - last 24 hr 05/02/19 05/02/19 05/02/19 22:04 22:15 23:00 WBC RBC Hgb Hct MCV MCH MCHC RDW Plt Count MPV Neut % (Auto) Lymph % (Auto) [place] % (Auto) Eos % (Auto) Baso % (Auto) Lymph # (Auto) [place] # (Auto) Eos # (Auto) Baso # (Auto) Absolute Neuts (auto) PT INR APTT pCO2 44 pO2 76.0 L HCO3 29.9 H ABG pH 7.44 ABG Total CO2 31.3 H ABG O2 Saturation 98.0 ABG O2 Content 17.6 ABG Base Excess 5.0 H ABG Hemoglobin 13.7 ABG Carboxyhemoglobin 5.7 H POC ABG HHb (Measured) 1.9 ABG Methemoglobin 1.0 ABG O2 Capacity 18.0 Hgb O2 Saturation 91.3 L FiO2 28.0 Sodium 141 Potassium 3.6 Chloride 104 Carbon Dioxide 34 H Anion Gap 7 L BUN 17 Creatinine 0.8 Est GFR ( Amer) > 60 Est GFR (Non-Af Amer) > 60 Random Glucose 92 Calcium 9.1 Phosphorus Magnesium Total Bilirubin 0.3 AST 34 ALT 16 Alkaline Phosphatase 73 Lactate Dehydrogenase 559 Total Creatine Kinase 201 Troponin I < 0.01 Total Protein 7.4 Albumin 3.7 Globulin 3.7 Albumin/Globulin Ratio 1.0 L Urine Color Urine Appearance Urine pH Ur Specific Ruth Urine Protein Urine Glucose (UA) Urine Ketones Urine Blood Urine Nitrate Urine Bilirubin Urine Urobilinogen Ur Leukocyte Esterase Urine RBC Urine WBC Ur Epithelial Cells Urine Bacteria Hyaline Casts Urine Other Salicylates Urine Opiates Screen Positive H Urine Methadone Screen Negative Acetaminophen Ur Barbiturates Screen Negative Ur Phencyclidine Scrn Negative Ur Amphetamines Screen Negative U Benzodiazepines Scrn Positive H U Oth Cocaine Metabols Negative U Cannabinoids Screen Negative Alcohol, Quantitative 05/02/19 05/02/19 05/02/19 23:00 23:00 23:00 WBC 5.9 RBC 4.73 Hgb 13.2 Hct 42.0 MCV 88.8 MCH 27.9 MCHC 31.4 RDW 14.7 H Plt Count 203 MPV 10.4 Neut % (Auto) Lymph % (Auto) [place] % (Auto) Eos % (Auto) Baso % (Auto) Lymph # (Auto) [place] # (Auto) Eos # (Auto) Baso # (Auto) Absolute Neuts (auto) PT INR APTT pCO2 pO2 HCO3 ABG pH ABG Total CO2 ABG O2 Saturation ABG O2 Content ABG Base Excess ABG Hemoglobin ABG Carboxyhemoglobin POC ABG HHb (Measured) ABG Methemoglobin ABG O2 Capacity Hgb O2 Saturation FiO2 Sodium Potassium Chloride Carbon Dioxide Anion Gap BUN Creatinine Est GFR ( Amer) Est GFR (Non-Af Amer) Random Glucose Calcium Phosphorus Magnesium Total Bilirubin AST ALT Alkaline Phosphatase Lactate Dehydrogenase Total Creatine Kinase Troponin I Total Protein Albumin Globulin Albumin/Globulin Ratio Urine Color Urine Appearance Urine pH Ur Specific Ruth Urine Protein Urine Glucose (UA) Urine Ketones Urine Blood Urine Nitrate Urine Bilirubin Urine Urobilinogen Ur Leukocyte Esterase Urine RBC Urine WBC Ur Epithelial Cells Urine Bacteria Hyaline Casts Urine Other Salicylates < 1 L Urine Opiates Screen Urine Methadone Screen Acetaminophen 36.0 H Ur Barbiturates Screen Ur Phencyclidine Scrn Ur Amphetamines Screen U Benzodiazepines Scrn U Oth Cocaine Metabols U Cannabinoids Screen Alcohol, Quantitative < 10 05/03/19 05/03/19 05/03/19 01:35 06:45 06:45 WBC 5.2 RBC 4.73 Hgb 13.2 Hct 42.0 MCV 88.8 MCH 27.9 MCHC 31.4 RDW 14.6 H Plt Count 203 MPV 10.8 Neut % (Auto) 62.0 Lymph % (Auto) 19.3 L [place] % (Auto) 9.4 H Eos % (Auto) 8.5 H Baso % (Auto) 0.8 Lymph # (Auto) 1.0 L [place] # (Auto) 0.5 Eos # (Auto) 0.4 Baso # (Auto) 0.04 Absolute Neuts (auto) 3.22 PT INR APTT pCO2 pO2 HCO3 ABG pH ABG Total CO2 ABG O2 Saturation ABG O2 Content ABG Base Excess ABG Hemoglobin ABG Carboxyhemoglobin POC ABG HHb (Measured) ABG Methemoglobin ABG O2 Capacity Hgb O2 Saturation FiO2 Sodium 140 Potassium 3.7 Chloride 103 Carbon Dioxide 31 Anion Gap 9 L BUN 14 Creatinine 0.6 L Est GFR ( Amer) > 60 Est GFR (Non-Af Amer) > 60 Random Glucose 101 Calcium 8.5 Phosphorus 3.3 Magnesium 2.0 Total Bilirubin 0.4 AST 27 ALT 18 Alkaline Phosphatase 31 L D Lactate Dehydrogenase Total Creatine Kinase Troponin I Total Protein 6.5 Albumin 3.1 Globulin 3.4 Albumin/Globulin Ratio 0.9 L Urine Color Yellow Urine Appearance Clear Urine pH 6.5 Ur Specific Ruth 1.020 Urine Protein Negative Urine Glucose (UA) Negative Urine Ketones Negative Urine Blood Small H Urine Nitrate Negative Urine Bilirubin Negative Urine Urobilinogen 0.2 Ur Leukocyte Esterase Negative Urine RBC 2 - 5 H Urine WBC 0 - 2 Ur Epithelial Cells 3 - 4 Urine Bacteria Small Hyaline Casts 0 - 2 Urine Other Fiber Salicylates Urine Opiates Screen Urine Methadone Screen Acetaminophen Ur Barbiturates Screen Ur Phencyclidine Scrn Ur Amphetamines Screen U Benzodiazepines Scrn U Oth Cocaine Metabols U Cannabinoids Screen Alcohol, Quantitative 05/03/19 05/03/19 05/03/19 06:45 06:45 10:45 WBC RBC Hgb Hct MCV MCH MCHC RDW Plt Count MPV Neut % (Auto) Lymph % (Auto) [place] % (Auto) Eos % (Auto) Baso % (Auto) Lymph # (Auto) [place] # (Auto) Eos # (Auto) Baso # (Auto) Absolute Neuts (auto) PT 13.8 H INR 1.22 APTT 30.1 pCO2 pO2 HCO3 ABG pH ABG Total CO2 ABG O2 Saturation ABG O2 Content ABG Base Excess ABG Hemoglobin ABG Carboxyhemoglobin POC ABG HHb (Measured) ABG Methemoglobin ABG O2 Capacity Hgb O2 Saturation FiO2 Sodium Potassium Chloride Carbon Dioxide Anion Gap BUN Creatinine Est GFR ( Amer) Est GFR (Non-Af Amer) Random Glucose Calcium Phosphorus Magnesium Total Bilirubin AST ALT Alkaline Phosphatase Lactate Dehydrogenase Total Creatine Kinase Troponin I Total Protein Albumin Globulin Albumin/Globulin Ratio Urine Color Urine Appearance Urine pH Ur Specific Ruth Urine Protein Urine Glucose (UA) Urine Ketones Urine Blood Urine Nitrate Urine Bilirubin Urine Urobilinogen Ur Leukocyte Esterase Urine RBC Urine WBC Ur Epithelial Cells Urine Bacteria Hyaline Casts Urine Other Salicylates Urine Opiates Screen Urine Methadone Screen Acetaminophen < 10.0 L < 10.0 L Ur Barbiturates Screen Ur Phencyclidine Scrn Ur Amphetamines Screen U Benzodiazepines Scrn U Oth Cocaine Metabols U Cannabinoids Screen Alcohol, Quantitative 05/03/19 14:50 WBC RBC Hgb Hct MCV MCH MCHC RDW Plt Count MPV Neut % (Auto) Lymph % (Auto) [place] % (Auto) Eos % (Auto) Baso % (Auto) Lymph # (Auto) [place] # (Auto) Eos # (Auto) Baso # (Auto) Absolute Neuts (auto) PT INR APTT pCO2 pO2 HCO3 ABG pH ABG Total CO2 ABG O2 Saturation ABG O2 Content ABG Base Excess ABG Hemoglobin ABG Carboxyhemoglobin POC ABG HHb (Measured) ABG Methemoglobin ABG O2 Capacity Hgb O2 Saturation FiO2 Sodium Potassium Chloride Carbon Dioxide Anion Gap BUN Creatinine Est GFR ( Amer) Est GFR (Non-Af Amer) Random Glucose Calcium Phosphorus Magnesium Total Bilirubin AST ALT Alkaline Phosphatase Lactate Dehydrogenase Total Creatine Kinase Troponin I Total Protein Albumin Globulin Albumin/Globulin Ratio Urine Color Urine Appearance Urine pH Ur Specific Ruth Urine Protein Urine Glucose (UA) Urine Ketones Urine Blood Urine Nitrate Urine Bilirubin Urine Urobilinogen Ur Leukocyte Esterase Urine RBC Urine WBC Ur Epithelial Cells Urine Bacteria Hyaline Casts Urine Other Salicylates Urine Opiates Screen Urine Methadone Screen Acetaminophen < 10.0 L Ur Barbiturates Screen Ur Phencyclidine Scrn Ur Amphetamines Screen U Benzodiazepines Scrn U Oth Cocaine Metabols U Cannabinoids Screen Alcohol, Quantitative Radiology Impressions: Radiology Impressions Chest X-Ray 05/02/19 21:46 IMPRESSION: No active disease. Head CT 05/03/19 00:56 IMPRESSION: No acute intracranial pathology. Critical Care Progress Note - Nutrition Nutrition: Nutrition Category Date Time Status NPO Diet [DIET] Diets 05/03/19 Breakfast Ordered Addendum Addendum: 05/03/19 16:01 MICU Attending Addendum: Patient seen and examined with housestaff, case discussed on rounds. I agree with resident note above with the following additions/exceptions: 54 F with unknown PMH admitted to ICU for opioid and Tylenol overdose. Responded well to narcan, in fact required sedative overnight. Awake and alert this AM. Trending tylenol levels while on NAC. Repeat 2 x are < 10 Concerning issue remaining is her elevated BP. No known home meds for anti HTN. did not respond to clonidine patch of 0.2mg and hydral 10mg will change patch to clonidine PO 0.3tid add lisinopril 5mg add tridil drip concern with HR running below 60 so avoiding CCB and BB Rest of care as per resident note above Lesly Santiago MD Attending Pulmonary Critical Care Sleep Medicine
[2019-05-03] MEDS: Enoxaparin 40 mg Syringe SC SCH (09:29)
[2019-05-03] MEDS: Sodium Chloride 0.9% 1,000 ML IV SCH (11:18)
--- NOTE | 2019-05-03 11:52 | RAD ---
Date of service: 05/03/2019 HISTORY: od COMPARISON: No prior. TECHNIQUE: 1 view obtained. FINDINGS: LUNGS: No active pulmonary disease. PLEURA: No significant pleural effusion identified, no pneumothorax apparent. CARDIOVASCULAR: Aortic atherosclerotic calcifications. Cardiomediastinal silhouette within normal limits. OSSEOUS STRUCTURES: Degenerative changes. VISUALIZED UPPER ABDOMEN: Normal. OTHER FINDINGS: None. IMPRESSION: No active disease.
--- NOTE | 2019-05-03 11:53 | CT ---
Date of service: 05/03/2019 PROCEDURE: CT HEAD WITHOUT CONTRAST. HISTORY: ?AMS, drug o/d COMPARISON: None available. TECHNIQUE: Axial computed tomography images were obtained through the head/brain without intravenous contrast. Radiation dose: Total exam DLP = 957.63 mGy-cm. This CT exam was performed using one or more of the following dose reduction techniques: Automated exposure control, adjustment of the mA and/or kV according to patient size, and/or use of iterative reconstruction technique. FINDINGS: HEMORRHAGE: No intracranial hemorrhage. BRAIN: No mass effect or edema. No atrophy or chronic microvascular ischemic changes. VENTRICLES: Unremarkable. No hydrocephalus. CALVARIUM: Unremarkable. PARANASAL SINUSES: Unremarkable as visualized. No significant inflammatory changes. MASTOID AIR CELLS: Unremarkable as visualized. No inflammatory changes. OTHER FINDINGS: None. IMPRESSION: No acute intracranial pathology.
[2019-05-03 15:09] LABS: PH,URINE 6.5 (4.7-8.0); URINE BILIRUBIN NEGATIVE (NEGATIVE); URINE BLOOD SMALL (NEGATIVE); URINE GLUCOSE (UA) NEGATIVE (NEGATIVE); URINE LEUKOCYTE ESTERASE NEGATIVE Leu/uL (NEGATIVE); URINE PROTEIN NEGATIVE mg/dL (<30 mg/dL); URINE UROBILINOGEN 0.2 E.U./dL (<1 E.U./dL)
[2019-05-03 15:14] LABS: URINE APPEARANCE CLEAR (CLEAR); URINE COLOR YELLOW (YELLOW)
[2019-05-03 15:20] LABS: URINE WBC 0 - 2 /hpf (0-6)
[2019-05-03 15:21] LABS: URINE BACTERIA SMALL /hpf; URINE HYALINE CAST 0 - 2 /hpf
[2019-05-03] MEDS ORDERED: Nitroglycerin 50mg in D5W 50 MG/250 ML BOTTLE IV PRN (16:32)
--- NOTE | 2019-05-03 19:22 | CARD ---
APPROVED REPORT Date of service: 05/03/2019 EKG Measurement Heart [id number] <Conclusion> Sinus bradycardia Otherwise normal ECG
[2019-05-03 21:58] LABS: INR 1.3; PROTHROMBIN TIME 14.4 SECONDS (9.4-12.5)
[2019-05-03 22:21] LABS: ALT/SGPT 19 U/L (7-56); AST/SGOT 38 U/L (14-36)
[2019-05-04 06:04] LABS: BASO # 0.01 K/mm3 (0.0-2.0); BASO % 0.2 % (0.0-3.0); EOS # 0.1 (0.0-0.7); EOS % 1.7 % (1.5-5.0); HEMOGLOBIN 13.3 g/dL (12.0-16.0); LYMPH # 0.9 (1.2-3.4); LYMPH % 16.4 % (22.0-35.0); MEAN CORPUSCULAR HEMOGLOBIN 27.7 pg (25.0-35.0); MEAN CORPUSCULAR HGB CONC 32.5 g/dl (31.0-37.0); MEAN PLATELET VOLUME 10.5 fl (7.0-11.0); MONO # 0.3 (0.1-0.6); MONO % 4.9 % (1.0-6.0); RBC 4.81 10^6/uL (3.5-6.1); RED CELL DISTRIBUTION WIDTH 14.7 % (11.5-14.5); WHITE BLOOD COUNT 5.3 10^3/uL (4.5-11.0)
[2019-05-04 07:15] LABS: ALBUMIN 3.3 g/dL (3.0-4.8); ALT/SGPT 15 U/L (7-56); AST/SGOT 22 U/L (14-36); BLOOD UREA NITROGEN 10 mg/dL (7-21); CALCIUM 9.3 mg/dL (8.4-10.5); GFR NON-AFRICAN AMERICAN > 60
[2019-05-04] MEDS ORDERED: Potassium Chloride 40 mEq/30 ml LIQ UD PO STA (07:31)
[2019-05-04] MEDS: Enoxaparin 40 mg Syringe SC SCH (09:37)
[2019-05-04 10:35] VITALS: BP 119/77; PULSE 53; O2SAT 96
[2019-05-04 10:40] VITALS: RESP 18
--- NOTE | 2019-05-04 12:09 | CP.PCM.PN ---
<ErikaJacques - Last Filed: 05/04/19 11:58> Subjective - Date & Time of Evaluation Date of Evaluation: 05/04/19 Time of Evaluation: 11:59 - Subjective Subjective: Medicine progress note - Erika PGY - 2 Patient seen and examined at bedside with no acute overnight events. Denies any acute complaitns right now, states she wants to go home; denies any HI/SI. Objective - Vital Signs/Intake and Output Vital Signs (last 24 hours): Temp Pulse Resp BP Pulse Ox 97 F L 53 L 18 119/77 96 05/03/19 03:00 05/04/19 09:40 05/04/19 10:39 05/04/19 09:28 05/04/19 09:40 Intake and Output: 05/04/19 05/04/19 06:59 18:59 Intake Total 18 Balance 18 - Medications Medications: Current Medications Clonidine HCl (Catapres) 0.3 mg PO Q8H [facility] Last Admin: 05/04/19 07:59 Dose: 0.3 mg Enoxaparin Sodium (Lovenox) 40 mg SC DAILY [facility]; Protocol Last Admin: 05/04/19 09:37 Dose: Not Given Famotidine (Pepcid) 20 mg PO DAILY [facility] Hydralazine HCl (Apresoline) 10 mg IVP Q6 PRN PRN Reason: Systolic Blood Pressure Last Admin: 05/03/19 16:04 Dose: 10 mg Lisinopril (Zestril) 10 mg PO DAILY [facility] Last Admin: 05/04/19 09:37 Dose: 10 mg Nicotine (Nicoderm Cq) 1 patch TD DAILY [facility] Last Admin: 05/04/19 09:37 Dose: 1 patch - Labs Labs: 05/04/19 05:20 05/04/19 05:20 PT 14.4 SECONDS (9.4-12.5) H 05/03/19 21:40 INR 1.30 05/03/19 21:40 APTT 30.1 Seconds (26.9-38.3) 05/03/19 06:45 - Constitutional Appears: Well - Head Exam Head Exam: ATRAUMATIC, NORMAL INSPECTION, NORMOCEPHALIC - Eye Exam Eye Exam: EOMI, Normal appearance, PERRL Pupil Exam: NORMAL ACCOMODATION, PERRL - ENT Exam ENT Exam: Mucous Membranes Moist, Normal Exam - Neck Exam Neck Exam: Full ROM, Normal Inspection. absent: Lymphadenopathy - Respiratory Exam Respiratory Exam: Clear to Ausculation Bilateral, NORMAL BREATHING PATTERN - Cardiovascular Exam Cardiovascular Exam: Bradycardia, REGULAR RHYTHM, +S1, +S2. absent: Murmur - GI/Abdominal Exam GI & Abdominal Exam: Soft, Normal Bowel Sounds. absent: Tenderness - Extremities Exam Extremities Exam: Full ROM, Normal Capillary Refill, Normal Inspection. absent: Joint Swelling, Pedal Edema - Back Exam Back Exam: NORMAL INSPECTION - Neurological Exam Neurological Exam: Alert, Awake, CN II-XII Intact, Normal Gait, Oriented x3 - Psychiatric Exam Psychiatric exam: Normal Affect, Normal Mood - Skin Skin Exam: Dry, Intact, Normal Color, Warm Assessment and Plan - Assessment and Plan (Free Text) Assessment: 54 y/o F with unknown PMH admitted to ICU for likely opioid intoxication s/p 5 doses narcan administration in the field before presentation [place] [facility]. Patient is more alert and oriented now, is s/p all 3 doses of NAC, and Tylenol levels have <10. Patient appears clinically better, however her HR is consistently low and she has been hypertensive. Dig levels were negative. Patient is unaware of any medical history, so is unable to tell us what her HR usually runs. Plan: Opiate intoxication - Resolved s/p Narcan - Continue to monitor patient and get to root of intoxication; Psych consult pending Acetaminophen intoxication - Resolved s/p NAC - LFTs are stable now as well Benzodiazepine intoxication - Resolved - Avoid Flumazenil - Patient takes xanax at home, would like to restart this to prevent seizures, but patient is bradycardic Asymptomatic Bradycardia - Persistent bradycardia; EKG ordered today Hypertension - Patient is unaware of any history of HTN; - Hydralazine PRN Dispo: Awaiting psychiatry recommendations. DVT/GI: lovenox/pepcid <Yaz Graff - Last Filed: 05/04/19 13:00> Objective - Vital Signs/Intake and Output Vital Signs (last 24 hours): Temp Pulse Resp BP Pulse Ox 97 F L 53 L 18 119/77 96 05/03/19 03:00 05/04/19 09:40 05/04/19 10:39 05/04/19 09:28 05/04/19 09:40 Intake and Output: 05/04/19 05/04/19 06:59 18:59 Intake Total 18 Balance 18 - Medications Medications: Current Medications Clonidine HCl (Catapres) 0.3 mg PO Q8H [facility] Last Admin: 05/04/19 07:59 Dose: 0.3 mg Enoxaparin Sodium (Lovenox) 40 mg SC DAILY [facility]; Protocol Last Admin: 05/04/19 09:37 Dose: Not Given Famotidine (Pepcid) 20 mg PO DAILY [facility] Hydralazine HCl (Apresoline) 10 mg IVP Q6 PRN PRN Reason: Systolic Blood Pressure Last Admin: 05/03/19 16:04 Dose: 10 mg Lisinopril (Zestril) 10 mg PO DAILY [facility] Last Admin: 05/04/19 09:37 Dose: 10 mg Nicotine (Nicoderm Cq) 1 patch TD DAILY [facility] Last Admin: 05/04/19 09:37 Dose: 1 patch - Labs Labs: 05/04/19 05:20 05/04/19 05:20 PT 14.4 SECONDS (9.4-12.5) H 05/03/19 21:40 INR 1.30 05/03/19 21:40 APTT 30.1 Seconds (26.9-38.3) 05/03/19 06:45 Attending/Attestation - Attestation I have personally seen and examined this patient.: Yes I have fully participated in the care of the patient.: Yes I have reviewed all pertinent clinical information, including history, physical exam and plan: Yes Notes (Text): 05/04/19 12:52 54 year old female with no known past medical history who presented after opioid/tylenol overdose. She responded to narcan. She received NAC and tylenol level trended down. LFTs are stable. On admission patient was also found to be hypertensive and bradycardic. She was on tridil drip in addition to lisinopril and clonidine started by ICU yesterday. Today her blood pressure has improved. She is off the tridil drip. Will taper her clonidine. Patient is awake and alert this morning. She admits to taking heroin and xanax prior to admission. She was counselled on risks of substance / narcotic / tylenol / benzodiazepine abuse. She denied any suicidal intent and wishes to go home. She is on 1:1 observation and explained she is pending psychiatry evaluation. Yaz Graff MD Hospitalist.
--- NOTE | 2019-05-04 13:46 | CP.CCUPN ---
<Artur Montenegro - Last Filed: 05/04/19 13:34> CCU Subjective - Physician Review Subjective (Free Text): 05/04/19 13:34 Seen and examined at bedside this morning No acute events overnight Patient sitting up talking, eating breakfast, has no complaints at this time. Reporting no previous hx of HTN CCU Objective - Vital Signs / Intake & Output Vital Signs (Last 4 hours): Vital Signs Pulse Resp Pulse Ox 05/04/19 10:39 18 05/04/19 09:40 53 L 37 H 96 Intake and Output (Last 8hrs): Intake & Output 05/03/19 05/04/19 05/04/19 22:59 06:59 14:59 Intake Total 1899 18 Output Total 4300 Balance -2401 18 Weight 88.451 kg Intake: IV 1799 18 Left Antecubital 1792 18 Oral 100 Output: Urine 4300 Urine, Voided 4300 Other: # Voids Urine, Voided 2 # Bowel Movements 0 - Physical Exam Head: Positive for: Atraumatic, Normocephalic Pupils: Positive for: PERRL Extroacular Muscles: Positive for: EOMI Conjunctiva: Positive for: Normal Ears: Positive for: NORMAL TM Mouth: Positive for: Moist Mucous Membranes Neck: Positive for: Normal Range of Motion Respiratory/Chest: Positive for: Clear to Auscultation, Good Air Exchange. Negative for: Respiratory Distress, Accessory Muscle Use Cardiovascular: Positive for: Regular Rate and Rhythm, Normal S1, S2. Negative for: Murmurs Abdomen: Positive for: Normal Bowel Sounds. Negative for: Distention, Guarding Back: Positive for: Normal Inspection Upper Extremity: Positive for: Normal Inspection. Negative for: Cyanosis, Edema Lower Extremity: Positive for: Normal Inspection. Negative for: Edema Neurological: Positive for: Motor Func Grossly Intact. Negative for: GCS=15, CN II-XII Intact, Speech Normal Skin: Positive for: Warm, Dry, Normal Color. Negative for: Rashes Psychiatric: Positive for: Alert, Oriented x 3, Normal Insight, Normal Concentration - Medications Active Medications: Active Medications Generic Name Dose Route Start Last Admin Trade Name Freq PRN Reason Stop Dose Admin Clonidine HCl 0.3 mg 05/03/19 16:00 05/04/19 07:59 Catapres PO 0.3 mg Q8H PATTIE Administration Enoxaparin Sodium 40 mg 05/03/19 10:00 05/04/19 09:37 Lovenox SC Not Given DAILY [facility] Protocol Famotidine 20 mg 05/05/19 10:00 Pepcid PO DAILY [facility] Hydralazine HCl 10 mg 05/03/19 11:02 05/03/19 16:04 Apresoline IVP 10 mg Q6 PRN Administration Systolic Blood Pressure Lisinopril 10 mg 05/04/19 10:00 05/04/19 09:37 Zestril PO 10 mg DAILY PATTIE Administration Nicotine 1 patch 05/03/19 10:00 05/04/19 09:37 Nicoderm Cq TD 1 patch DAILY PATTIE Administration - Patient Studies Lab Studies: Microbiology Studies 05/03/19 03:35 MRSA Culture (Admit) - Final Nose Lab Studies 05/04/19 05/04/19 05/04/19 Range/Units 10:20 05:20 05:20 WBC 5.3 (4.5-11.0) 10^3/uL RBC 4.81 (3.5-6.1) 10^6/uL Hgb 13.3 (12.0-16.0) g/dL Hct 40.9 (36.0-48.0) % MCV 85.0 D (80.0-105.0) fl MCH 27.7 (25.0-35.0) pg MCHC 32.5 (31.0-37.0) g/dl RDW 14.7 H (11.5-14.5) % Plt Count 218 (120.0-450.0) 10^3/uL MPV 10.5 (7.0-11.0) fl Neut % (Auto) 76.8 H (50.0-68.0) % Lymph % (Auto) 16.4 L (22.0-35.0) % [place] % (Auto) 4.9 (1.0-6.0) % Eos % (Auto) 1.7 (1.5-5.0) % Baso % (Auto) 0.2 (0.0-3.0) % Lymph # (Auto) 0.9 L (1.2-3.4) [place] # (Auto) 0.3 (0.1-0.6) Eos # (Auto) 0.1 (0.0-0.7) Baso # (Auto) 0.01 (0.0-2.0) K/mm3 Absolute Neuts (auto) 4.06 (1.4-6.5) PT (9.4-12.5) SECONDS INR Sodium 135 (132-148) mmol/L Potassium 3.4 L (3.6-5.0) mmol/L Chloride 103 (98-107) mmol/L Carbon Dioxide 26 (21-33) mmol/L Anion Gap 9 L (10-20) BUN 10 (7-21) mg/dL Creatinine 0.7 (0.7-1.2) mg/dl Est GFR ( Amer) > 60 Est GFR (Non-Af Amer) > 60 Random Glucose 123 H (70-110) mg/dL Calcium 9.3 (8.4-10.5) mg/dL Phosphorus 3.1 (2.5-4.5) mg/dL Magnesium 1.7 (1.7-2.2) mg/dL Total Bilirubin 0.9 (0.2-1.3) mg/dL AST 22 (14-36) U/L ALT 15 (7-56) U/L Alkaline Phosphatase 60 (38-126) U/L Total Protein 6.8 (5.8-8.3) g/dL Albumin 3.3 (3.0-4.8) g/dL Globulin 3.5 gm/dL Albumin/Globulin Ratio 1.0 L (1.1-1.8) Urine Color (YELLOW) Urine Appearance (CLEAR) Urine pH (4.7-8.0) Ur Specific [place] (1.005-1.035) Urine Protein (<30 mg/dL) mg/dL Urine Glucose (UA) (NEGATIVE) mg/dL Urine Ketones (NEGATIVE) mg/dL Urine Blood (NEGATIVE) Urine Nitrate (NEGATIVE) Urine Bilirubin (NEGATIVE) Urine Urobilinogen (<1 E.U./dL) E.U./dL Ur Leukocyte Esterase (NEGATIVE) [place]/uL Urine RBC (0-2) /hpf Urine WBC (0-6) /hpf Ur Epithelial Cells (0-5) /hpf Urine Bacteria (NONE) /hpf Hyaline Casts (NONE) /hpf Urine Other /hpf Digoxin < 0.4 L (0.8-2.0) ng/mL Acetaminophen (10.0-20.0) ug/ml 05/03/19 05/03/19 05/03/19 Range/Units 21:40 21:40 14:50 WBC (4.5-11.0) 10^3/uL RBC (3.5-6.1) 10^6/uL Hgb (12.0-16.0) g/dL Hct (36.0-48.0) % MCV (80.0-105.0) fl MCH (25.0-35.0) pg MCHC (31.0-37.0) g/dl RDW (11.5-14.5) % Plt Count (120.0-450.0) 10^3/uL MPV (7.0-11.0) fl Neut % (Auto) (50.0-68.0) % Lymph % (Auto) (22.0-35.0) % [place] % (Auto) (1.0-6.0) % Eos % (Auto) (1.5-5.0) % Baso % (Auto) (0.0-3.0) % Lymph # (Auto) (1.2-3.4) [place] # (Auto) (0.1-0.6) Eos # (Auto) (0.0-0.7) Baso # (Auto) (0.0-2.0) K/mm3 Absolute Neuts (auto) (1.4-6.5) PT 14.4 H (9.4-12.5) SECONDS INR 1.30 Sodium (132-148) mmol/L Potassium (3.6-5.0) mmol/L Chloride (98-107) mmol/L Carbon Dioxide (21-33) mmol/L Anion Gap (10-20) BUN (7-21) mg/dL Creatinine (0.7-1.2) mg/dl Est GFR ( Amer) Est GFR (Non-Af Amer) Random Glucose (70-110) mg/dL Calcium (8.4-10.5) mg/dL Phosphorus (2.5-4.5) mg/dL Magnesium (1.7-2.2) mg/dL Total Bilirubin (0.2-1.3) mg/dL AST 38 H D (14-36) U/L ALT 19 (7-56) U/L Alkaline Phosphatase (38-126) U/L Total Protein (5.8-8.3) g/dL Albumin (3.0-4.8) g/dL Globulin gm/dL Albumin/Globulin Ratio (1.1-1.8) Urine Color (YELLOW) Urine Appearance (CLEAR) Urine pH (4.7-8.0) Ur Specific [place] (1.005-1.035) Urine Protein (<30 mg/dL) mg/dL Urine Glucose (UA) (NEGATIVE) mg/dL Urine Ketones (NEGATIVE) mg/dL Urine Blood (NEGATIVE) Urine Nitrate (NEGATIVE) Urine Bilirubin (NEGATIVE) Urine Urobilinogen (<1 E.U./dL) E.U./dL Ur Leukocyte Esterase (NEGATIVE) [place]eline/uL Urine RBC (0-2) /hpf Urine WBC (0-6) /hpf Ur Epithelial Cells (0-5) /hpf Urine Bacteria (NONE) /hpf Hyaline Casts (NONE) /hpf Urine Other /hpf Digoxin (0.8-2.0) ng/mL Acetaminophen < 10.0 L (10.0-20.0) ug/ml 05/03/19 Range/Units 01:35 WBC (4.5-11.0) 10^3/uL RBC (3.5-6.1) 10^6/uL Hgb (12.0-16.0) g/dL Hct (36.0-48.0) % MCV (80.0-105.0) fl MCH (25.0-35.0) pg MCHC (31.0-37.0) g/dl RDW (11.5-14.5) % Plt Count (120.0-450.0) 10^3/uL MPV (7.0-11.0) fl Neut % (Auto) (50.0-68.0) % Lymph % (Auto) (22.0-35.0) % [place] % (Auto) (1.0-6.0) % Eos % (Auto) (1.5-5.0) % Baso % (Auto) (0.0-3.0) % Lymph # (Auto) (1.2-3.4) [place] # (Auto) (0.1-0.6) Eos # (Auto) (0.0-0.7) Baso # (Auto) (0.0-2.0) K/mm3 Absolute Neuts (auto) (1.4-6.5) PT (9.4-12.5) SECONDS INR Sodium (132-148) mmol/L Potassium (3.6-5.0) mmol/L Chloride (98-107) mmol/L Carbon Dioxide (21-33) mmol/L Anion Gap (10-20) BUN (7-21) mg/dL Creatinine (0.7-1.2) mg/dl Est GFR ( Amer) Est GFR (Non-Af Amer) Random Glucose (70-110) mg/dL Calcium (8.4-10.5) mg/dL Phosphorus (2.5-4.5) mg/dL Magnesium (1.7-2.2) mg/dL Total Bilirubin (0.2-1.3) mg/dL AST (14-36) U/L ALT (7-56) U/L Alkaline Phosphatase (38-126) U/L Total Protein (5.8-8.3) g/dL Albumin (3.0-4.8) g/dL Globulin gm/dL Albumin/Globulin Ratio (1.1-1.8) Urine Color Yellow (YELLOW) Urine Appearance Clear (CLEAR) Urine pH 6.5 (4.7-8.0) Ur Specific [place] 1.020 (1.005-1.035) Urine Protein Negative (<30 mg/dL) mg/dL Urine Glucose (UA) Negative (NEGATIVE) mg/dL Urine Ketones Negative (NEGATIVE) mg/dL Urine Blood Small H (NEGATIVE) Urine Nitrate Negative (NEGATIVE) Urine Bilirubin Negative (NEGATIVE) Urine Urobilinogen 0.2 (<1 E.U./dL) E.U./dL Ur Leukocyte Esterase Negative (NEGATIVE) Madeline/uL Urine RBC 2 - 5 H (0-2) /hpf Urine WBC 0 - 2 (0-6) /hpf Ur Epithelial Cells 3 - 4 (0-5) /hpf Urine Bacteria Small (NONE) /hpf Hyaline Casts 0 - 2 (NONE) /hpf Urine Other Fiber /hpf Digoxin (0.8-2.0) ng/mL Acetaminophen (10.0-20.0) ug/ml Laboratory Results - last 24 hr 05/03/19 05/03/19 05/03/19 01:35 14:50 21:40 WBC RBC Hgb Hct MCV MCH MCHC RDW Plt Count MPV Neut % (Auto) Lymph % (Auto) [place] % (Auto) Eos % (Auto) Baso % (Auto) Lymph # (Auto) [place] # (Auto) Eos # (Auto) Baso # (Auto) Absolute Neuts (auto) PT 14.4 H INR 1.30 Sodium Potassium Chloride Carbon Dioxide Anion Gap BUN Creatinine Est GFR ( Amer) Est GFR (Non-Af Amer) Random Glucose Calcium Phosphorus Magnesium Total Bilirubin AST ALT Alkaline Phosphatase Total Protein Albumin Globulin Albumin/Globulin Ratio Urine Color Yellow Urine Appearance Clear Urine pH 6.5 Ur Specific [place] 1.020 Urine Protein Negative Urine Glucose (UA) Negative Urine Ketones Negative Urine Blood Small H Urine Nitrate Negative Urine Bilirubin Negative Urine Urobilinogen 0.2 Ur Leukocyte Esterase Negative Urine RBC 2 - 5 H Urine WBC 0 - 2 Ur Epithelial Cells 3 - 4 Urine Bacteria Small Hyaline Casts 0 - 2 Urine Other Fiber Digoxin Acetaminophen < 10.0 L 05/03/19 05/04/19 05/04/19 21:40 05:20 05:20 WBC 5.3 RBC 4.81 Hgb 13.3 Hct 40.9 MCV 85.0 D MCH 27.7 MCHC 32.5 RDW 14.7 H Plt Count 218 MPV 10.5 Neut % (Auto) 76.8 H Lymph % (Auto) 16.4 L [place] % (Auto) 4.9 Eos % (Auto) 1.7 Baso % (Auto) 0.2 Lymph # (Auto) 0.9 L [place] # (Auto) 0.3 Eos # (Auto) 0.1 Baso # (Auto) 0.01 Absolute Neuts (auto) 4.06 PT INR Sodium 135 Potassium 3.4 L Chloride 103 Carbon Dioxide 26 Anion Gap 9 L BUN 10 Creatinine 0.7 Est GFR ( Amer) > 60 Est GFR (Non-Af Amer) > 60 Random Glucose 123 H Calcium 9.3 Phosphorus 3.1 Magnesium 1.7 Total Bilirubin 0.9 AST 38 H D 22 ALT 19 15 Alkaline Phosphatase 60 Total Protein 6.8 Albumin 3.3 Globulin 3.5 Albumin/Globulin Ratio 1.0 L Urine Color Urine Appearance Urine pH Ur Specific [place] Urine Protein Urine Glucose (UA) Urine Ketones Urine Blood Urine Nitrate Urine Bilirubin Urine Urobilinogen Ur Leukocyte Esterase Urine RBC Urine WBC Ur Epithelial Cells Urine Bacteria Hyaline Casts Urine Other Digoxin Acetaminophen 05/04/19 10:20 WBC RBC Hgb Hct MCV MCH MCHC RDW Plt Count MPV Neut % (Auto) Lymph % (Auto) [place] % (Auto) Eos % (Auto) Baso % (Auto) Lymph # (Auto) [place] # (Auto) Eos # (Auto) Baso # (Auto) Absolute Neuts (auto) PT INR Sodium Potassium Chloride Carbon Dioxide Anion Gap BUN Creatinine Est GFR ( Amer) Est GFR (Non-Af Amer) Random Glucose Calcium Phosphorus Magnesium Total Bilirubin AST ALT Alkaline Phosphatase Total Protein Albumin Globulin Albumin/Globulin Ratio Urine Color Urine Appearance Urine pH Ur Specific [place] Urine Protein Urine Glucose (UA) Urine Ketones Urine Blood Urine Nitrate Urine Bilirubin Urine Urobilinogen Ur Leukocyte Esterase Urine RBC Urine WBC Ur Epithelial Cells Urine Bacteria Hyaline Casts Urine Other Digoxin < 0.4 L Acetaminophen EKG/Cardiology Studies: Cardiology / EKG Studies 05/04/19 11:33 EKG [ELECTROCARDIOGRAM] Stat Comment: Reason For Exam: DIA Review of Systems - Review of Systems All systems: reviewed and no additional remarkable complaints except Critical Care Progress Note - Nutrition Nutrition: Nutrition Category Date Time Status Heart Healthy Diet [DIET] Diets 05/04/19 Breakfast Active Assessment/Plan - Assessment and Plan (Free Text) Assessment: 54F w/ no PMH admitted to ICU on 05/02 w/ Opiod, Tylenol, and Benzo OD. Poison Control Notified Neuro: Neurologically intact - AAO3 - Moving extremities past midline spontaneously Utox on ADM + Opiate + Benzo Good response to narcan in the field Flumazenil held for sz risk Tylenol Level 10 <<< 36 - improved s/p NAC 05/03 - CT Head negative for acute itnracranial path Psych: Possible suicide attempt Continue 1:1 Dr Kim on consult Cardio: RRR, normotensive, no signs of HD compromise Maintain MAP>65. Monitor for S/S, HD compromise. Pulm: CTABL No s/s respiratory distress Maintan O2 >90% Elevate HOB >30deg GI: Liver function stable - LFTs + PLT + COAG wnl Started on HHD Pepcid /Nephro: Renal function stable BUN/Cr Stable Good urine output Replete electrolytes as needed. Maintain euvolemia. Endocrinology: Maintain euglycemia. Heme/Onc: H/H stable No signs of HD compromise. Continue monitoring H/H ID: Afebrile, no leukocytosis Monitor for signs and symptoms of infection. DVT prophylaxis: Lovenox GI prophylaxis: Pepcid Dispo: Patient neuro status, respiratory status, liver function, Coag studies, and renal function are all stable at this time. Patient no longer requiring ICU at this time. Transfer to med/surg for further inpt management. Patient was seen examined discussed w/ attending Dr. Óscar Montenegro DO PGY1 <Kushal Cantrell - Last Filed: 05/04/19 14:22> CCU Objective - Vital Signs / Intake & Output Vital Signs (Last 4 hours): Vital Signs Resp 05/04/19 10:39 18 Intake and Output (Last 8hrs): Intake & Output 05/03/19 05/04/19 05/04/19 22:59 06:59 14:59 Intake Total 1899 18 Output Total 4300 Balance -2401 18 Weight 195 lb Intake: IV 1799 18 Left Antecubital 1792 18 Oral 100 Output: Urine 4300 Urine, Voided 4300 Other: # Voids Urine, Voided 2 # Bowel Movements 0 - Patient Studies Lab Studies: Microbiology Studies 05/03/19 03:35 MRSA Culture (Admit) - Final Nose Lab Studies 05/04/19 05/04/19 05/04/19 Range/Units 10:20 05:20 05:20 WBC 5.3 (4.5-11.0) 10^3/uL RBC 4.81 (3.5-6.1) 10^6/uL Hgb 13.3 (12.0-16.0) g/dL Hct 40.9 (36.0-48.0) % MCV 85.0 D (80.0-105.0) fl MCH 27.7 (25.0-35.0) pg MCHC 32.5 (31.0-37.0) g/dl RDW 14.7 H (11.5-14.5) % Plt Count 218 (120.0-450.0) 10^3/uL MPV 10.5 (7.0-11.0) fl Neut % (Auto) 76.8 H (50.0-68.0) % Lymph % (Auto) 16.4 L (22.0-35.0) % [place] % (Auto) 4.9 (1.0-6.0) % Eos % (Auto) 1.7 (1.5-5.0) % Baso % (Auto) 0.2 (0.0-3.0) % Lymph # (Auto) 0.9 L (1.2-3.4) [place] # (Auto) 0.3 (0.1-0.6) Eos # (Auto) 0.1 (0.0-0.7) Baso # (Auto) 0.01 (0.0-2.0) K/mm3 Absolute Neuts (auto) 4.06 (1.4-6.5) PT (9.4-12.5) SECONDS INR Sodium 135 (132-148) mmol/L Potassium 3.4 L (3.6-5.0) mmol/L Chloride 103 (98-107) mmol/L Carbon Dioxide 26 (21-33) mmol/L Anion Gap 9 L (10-20) BUN 10 (7-21) mg/dL Creatinine 0.7 (0.7-1.2) mg/dl Est GFR ( Amer) > 60 Est GFR (Non-Af Amer) > 60 Random Glucose 123 H (70-110) mg/dL Calcium 9.3 (8.4-10.5) mg/dL Phosphorus 3.1 (2.5-4.5) mg/dL Magnesium 1.7 (1.7-2.2) mg/dL Total Bilirubin 0.9 (0.2-1.3) mg/dL AST 22 (14-36) U/L ALT 15 (7-56) U/L Alkaline Phosphatase 60 (38-126) U/L Total Protein 6.8 (5.8-8.3) g/dL Albumin 3.3 (3.0-4.8) g/dL Globulin 3.5 gm/dL Albumin/Globulin Ratio 1.0 L (1.1-1.8) Urine Color (YELLOW) Urine Appearance (CLEAR) Urine pH (4.7-8.0) Ur Specific [place] (1.005-1.035) Urine Protein (<30 mg/dL) mg/dL Urine Glucose (UA) (NEGATIVE) mg/dL Urine Ketones (NEGATIVE) mg/dL Urine Blood (NEGATIVE) Urine Nitrate (NEGATIVE) Urine Bilirubin (NEGATIVE) Urine Urobilinogen (<1 E.U./dL) E.U./dL Ur Leukocyte Esterase (NEGATIVE) Madeline/uL Urine RBC (0-2) /hpf Urine WBC (0-6) /hpf Ur Epithelial Cells (0-5) /hpf Urine Bacteria (NONE) /hpf Hyaline Casts (NONE) /hpf Urine Other /hpf Digoxin < 0.4 L (0.8-2.0) ng/mL Acetaminophen (10.0-20.0) ug/ml 05/03/19 05/03/19 05/03/19 Range/Units 21:40 21:40 14:50 WBC (4.5-11.0) 10^3/uL RBC (3.5-6.1) 10^6/uL Hgb (12.0-16.0) g/dL Hct (36.0-48.0) % MCV (80.0-105.0) fl MCH (25.0-35.0) pg MCHC (31.0-37.0) g/dl RDW (11.5-14.5) % Plt Count (120.0-450.0) 10^3/uL MPV (7.0-11.0) fl Neut % (Auto) (50.0-68.0) % Lymph % (Auto) (22.0-35.0) % [place] % (Auto) (1.0-6.0) % Eos % (Auto) (1.5-5.0) % Baso % (Auto) (0.0-3.0) % Lymph # (Auto) (1.2-3.4) [place] # (Auto) (0.1-0.6) Eos # (Auto) (0.0-0.7) Baso # (Auto) (0.0-2.0) K/mm3 Absolute Neuts (auto) (1.4-6.5) PT 14.4 H (9.4-12.5) SECONDS INR 1.30 Sodium (132-148) mmol/L Potassium (3.6-5.0) mmol/L Chloride (98-107) mmol/L Carbon Dioxide (21-33) mmol/L Anion Gap (10-20) BUN (7-21) mg/dL Creatinine (0.7-1.2) mg/dl Est GFR ( Amer) Est GFR (Non-Af Amer) Random Glucose (70-110) mg/dL Calcium (8.4-10.5) mg/dL Phosphorus (2.5-4.5) mg/dL Magnesium (1.7-2.2) mg/dL Total Bilirubin (0.2-1.3) mg/dL AST 38 H D (14-36) U/L ALT 19 (7-56) U/L Alkaline Phosphatase (38-126) U/L Total Protein (5.8-8.3) g/dL Albumin (3.0-4.8) g/dL Globulin gm/dL Albumin/Globulin Ratio (1.1-1.8) Urine Color (YELLOW) Urine Appearance (CLEAR) Urine pH (4.7-8.0) Ur Specific [place] (1.005-1.035) Urine Protein (<30 mg/dL) mg/dL Urine Glucose (UA) (NEGATIVE) mg/dL Urine Ketones (NEGATIVE) mg/dL Urine Blood (NEGATIVE) Urine Nitrate (NEGATIVE) Urine Bilirubin (NEGATIVE) Urine Urobilinogen (<1 E.U./dL) E.U./dL Ur Leukocyte Esterase (NEGATIVE) Madeline/uL Urine RBC (0-2) /hpf Urine WBC (0-6) /hpf Ur Epithelial Cells (0-5) /hpf Urine Bacteria (NONE) /hpf Hyaline Casts (NONE) /hpf Urine Other /hpf Digoxin (0.8-2.0) ng/mL Acetaminophen < 10.0 L (10.0-20.0) ug/ml 05/03/19 Range/Units 01:35 WBC (4.5-11.0) 10^3/uL RBC (3.5-6.1) 10^6/uL Hgb (12.0-16.0) g/dL Hct (36.0-48.0) % MCV (80.0-105.0) fl MCH (25.0-35.0) pg MCHC (31.0-37.0) g/dl RDW (11.5-14.5) % Plt Count (120.0-450.0) 10^3/uL MPV (7.0-11.0) fl Neut % (Auto) (50.0-68.0) % Lymph % (Auto) (22.0-35.0) % [place] % (Auto) (1.0-6.0) % Eos % (Auto) (1.5-5.0) % Baso % (Auto) (0.0-3.0) % Lymph # (Auto) (1.2-3.4) [place] # (Auto) (0.1-0.6) Eos # (Auto) (0.0-0.7) Baso # (Auto) (0.0-2.0) K/mm3 Absolute Neuts (auto) (1.4-6.5) PT (9.4-12.5) SECONDS INR Sodium (132-148) mmol/L Potassium (3.6-5.0) mmol/L Chloride (98-107) mmol/L Carbon Dioxide (21-33) mmol/L Anion Gap (10-20) BUN (7-21) mg/dL Creatinine (0.7-1.2) mg/dl Est GFR ( Amer) Est GFR (Non-Af Amer) Random Glucose (70-110) mg/dL Calcium (8.4-10.5) mg/dL Phosphorus (2.5-4.5) mg/dL Magnesium (1.7-2.2) mg/dL Total Bilirubin (0.2-1.3) mg/dL AST (14-36) U/L ALT (7-56) U/L Alkaline Phosphatase (38-126) U/L Total Protein (5.8-8.3) g/dL Albumin (3.0-4.8) g/dL Globulin gm/dL Albumin/Globulin Ratio (1.1-1.8) Urine Color Yellow (YELLOW) Urine Appearance Clear (CLEAR) Urine pH 6.5 (4.7-8.0) Ur Specific [place] 1.020 (1.005-1.035) Urine Protein Negative (<30 mg/dL) mg/dL Urine Glucose (UA) Negative (NEGATIVE) mg/dL Urine Ketones Negative (NEGATIVE) mg/dL Urine Blood Small H (NEGATIVE) Urine Nitrate Negative (NEGATIVE) Urine Bilirubin Negative (NEGATIVE) Urine Urobilinogen 0.2 (<1 E.U./dL) E.U./dL Ur Leukocyte Esterase Negative (NEGATIVE) Madeline/uL Urine RBC 2 - 5 H (0-2) /hpf Urine WBC 0 - 2 (0-6) /hpf Ur Epithelial Cells 3 - 4 (0-5) /hpf Urine Bacteria Small (NONE) /hpf Hyaline Casts 0 - 2 (NONE) /hpf Urine Other Fiber /hpf Digoxin (0.8-2.0) ng/mL Acetaminophen (10.0-20.0) ug/ml Laboratory Results - last 24 hr 05/03/19 05/03/19 05/03/19 01:35 14:50 21:40 WBC RBC Hgb Hct MCV MCH MCHC RDW Plt Count MPV Neut % (Auto) Lymph % (Auto) [place] % (Auto) Eos % (Auto) Baso % (Auto) Lymph # (Auto) [place] # (Auto) Eos # (Auto) Baso # (Auto) Absolute Neuts (auto) PT 14.4 H INR 1.30 Sodium Potassium Chloride Carbon Dioxide Anion Gap BUN Creatinine Est GFR ( Amer) Est GFR (Non-Af Amer) Random Glucose Calcium Phosphorus Magnesium Total Bilirubin AST ALT Alkaline Phosphatase Total Protein Albumin Globulin Albumin/Globulin Ratio Urine Color Yellow Urine Appearance Clear Urine pH 6.5 Ur Specific [place] 1.020 Urine Protein Negative Urine Glucose (UA) Negative Urine Ketones Negative Urine Blood Small H Urine Nitrate Negative Urine Bilirubin Negative Urine Urobilinogen 0.2 Ur Leukocyte Esterase Negative Urine RBC 2 - 5 H Urine WBC 0 - 2 Ur Epithelial Cells 3 - 4 Urine Bacteria Small Hyaline Casts 0 - 2 Urine Other Fiber Digoxin Acetaminophen < 10.0 L 05/03/19 05/04/19 05/04/19 21:40 05:20 05:20 WBC 5.3 RBC 4.81 Hgb 13.3 Hct 40.9 MCV 85.0 D MCH 27.7 MCHC 32.5 RDW 14.7 H Plt Count 218 MPV 10.5 Neut % (Auto) 76.8 H Lymph % (Auto) 16.4 L [place] % (Auto) 4.9 Eos % (Auto) 1.7 Baso % (Auto) 0.2 Lymph # (Auto) 0.9 L [place] # (Auto) 0.3 Eos # (Auto) 0.1 Baso # (Auto) 0.01 Absolute Neuts (auto) 4.06 PT INR Sodium 135 Potassium 3.4 L Chloride 103 Carbon Dioxide 26 Anion Gap 9 L BUN 10 Creatinine 0.7 Est GFR ( Amer) > 60 Est GFR (Non-Af Amer) > 60 Random Glucose 123 H Calcium 9.3 Phosphorus 3.1 Magnesium 1.7 Total Bilirubin 0.9 AST 38 H D 22 ALT 19 15 Alkaline Phosphatase 60 Total Protein 6.8 Albumin 3.3 Globulin 3.5 Albumin/Globulin Ratio 1.0 L Urine Color Urine Appearance Urine pH Ur Specific [place] Urine Protein Urine Glucose (UA) Urine Ketones Urine Blood Urine Nitrate Urine Bilirubin Urine Urobilinogen Ur Leukocyte Esterase Urine RBC Urine WBC Ur Epithelial Cells Urine Bacteria Hyaline Casts Urine Other Digoxin Acetaminophen 05/04/19 10:20 WBC RBC Hgb Hct MCV MCH MCHC RDW Plt Count MPV Neut % (Auto) Lymph % (Auto) [place] % (Auto) Eos % (Auto) Baso % (Auto) Lymph # (Auto) [place] # (Auto) Eos # (Auto) Baso # (Auto) Absolute Neuts (auto) PT INR Sodium Potassium Chloride Carbon Dioxide Anion Gap BUN Creatinine Est GFR ( Amer) Est GFR (Non-Af Amer) Random Glucose Calcium Phosphorus Magnesium Total Bilirubin AST ALT Alkaline Phosphatase Total Protein Albumin Globulin Albumin/Globulin Ratio Urine Color Urine Appearance Urine pH Ur Specific [place] Urine Protein Urine Glucose (UA) Urine Ketones Urine Blood Urine Nitrate Urine Bilirubin Urine Urobilinogen Ur Leukocyte Esterase Urine RBC Urine WBC Ur Epithelial Cells Urine Bacteria Hyaline Casts Urine Other Digoxin < 0.4 L Acetaminophen EKG/Cardiology Studies: Cardiology / EKG Studies 05/04/19 11:33 EKG [ELECTROCARDIOGRAM] Stat Comment: Reason For Exam: DIA Critical Care Progress Note - Nutrition Nutrition: Nutrition Category Date Time Status Heart Healthy Diet [DIET] Diets 05/04/19 Breakfast Active Assessment/Plan - Assessment and Plan (Free Text) Assessment: I saw and examined the patient on rounds with the resident, agree with note with following additions/exceptions: Patient is 54yo femlae with PMHx of opiod abuse admitted to ICU on w/ Opiod, Tylenol, and Benzo OD. Pt currently afebrile, HD stable, comfortable in NAD at time of exam Labs, imaging, chart reviewed LFTs wnl Cr wnl good UOP Cont with IVF hydration Psych follow up Stable, transfer to med surg
--- NOTE | 2019-05-04 16:23 | CARD ---
APPROVED REPORT Date of service: 05/04/2019 EKG Measurement Heart [id number] <Conclusion> Marked sinus bradycardia Abnormal ECG
--- NOTE | 2019-05-04 17:50 | CP.PCM.DIS ---
<Jacques James - Last Filed: 05/04/19 17:47> Provider - Provider Date of Admission: 05/03/19 00:48 Attending physician: Yaz Graff MD Primary care physician: NO FAMILY PROVIDER Consults: 05/03/19 09:24 Psychiatry Consult Routine Comment: Consulting Provider: Clarisse Antonio Consulting Physician: Clarisse Antonio Reason for Consult: opioid/tylenol OD, possible suicide attempt; SI on day of admission Time Spent in preparation of Discharge (in minutes): 40 Hospital Course - Lab Results Lab Results: Micro Results 05/03/19 03:35 Nose MRSA Culture (Admit) - Final Most Recent Lab Values WBC 5.3 10^3/uL (4.5-11.0) 05/04/19 05:20 RBC 4.81 10^6/uL (3.5-6.1) 05/04/19 05:20 Hgb 13.3 g/dL (12.0-16.0) 05/04/19 05:20 Hct 40.9 % (36.0-48.0) 05/04/19 05:20 MCV 85.0 fl (80.0-105.0) D 05/04/19 05:20 MCH 27.7 pg (25.0-35.0) 05/04/19 05:20 MCHC 32.5 g/dl (31.0-37.0) 05/04/19 05:20 RDW 14.7 % (11.5-14.5) H 05/04/19 05:20 Plt Count 218 10^3/uL (120.0-450.0) 05/04/19 05:20 MPV 10.5 fl (7.0-11.0) 05/04/19 05:20 Neut % (Auto) 76.8 % (50.0-68.0) H 05/04/19 05:20 Lymph % (Auto) 16.4 % (22.0-35.0) L 05/04/19 05:20 Edwards % (Auto) 4.9 % (1.0-6.0) 05/04/19 05:20 Eos % (Auto) 1.7 % (1.5-5.0) 05/04/19 05:20 Baso % (Auto) 0.2 % (0.0-3.0) 05/04/19 05:20 Lymph # (Auto) 0.9 (1.2-3.4) L 05/04/19 05:20 Edwards # (Auto) 0.3 (0.1-0.6) 05/04/19 05:20 Eos # (Auto) 0.1 (0.0-0.7) 05/04/19 05:20 Baso # (Auto) 0.01 K/mm3 (0.0-2.0) 05/04/19 05:20 Absolute Neuts (auto) 4.06 (1.4-6.5) 05/04/19 05:20 PT 14.4 SECONDS (9.4-12.5) H 05/03/19 21:40 INR 1.30 05/03/19 21:40 APTT 30.1 Seconds (26.9-38.3) 05/03/19 06:45 pCO2 44 mm/Hg (35-45) 05/02/19 22:15 pO2 76.0 mm/Hg (80-100) L 05/02/19 22:15 HCO3 29.9 mmol/L (21-28) H 05/02/19 22:15 ABG pH 7.44 (7.35-7.45) 05/02/19 22:15 ABG Total CO2 31.3 mmol.L (22-28) H 05/02/19 22:15 ABG O2 Saturation 98.0 % (95-98) 05/02/19 22:15 ABG O2 Content 17.6 ML/dl (15-23) 05/02/19 22:15 ABG Base Excess 5.0 mmol/L (-2.0-3.0) H 05/02/19 22:15 ABG Hemoglobin 13.7 g/dL (11.7-17.4) 05/02/19 22:15 ABG Carboxyhemoglobin 5.7 % (0.5-1.5) H 05/02/19 22:15 POC ABG HHb (Measured) 1.9 % (0-5) 05/02/19 22:15 ABG Methemoglobin 1.0 % (0.0-3.0) 05/02/19 22:15 ABG O2 Capacity 18.0 mL/dl (16-24) 05/02/19 22:15 Hgb O2 Saturation 91.3 % (95.0-98.0) L 05/02/19 22:15 FiO2 28.0 % 05/02/19 22:15 Sodium 135 mmol/L (132-148) 05/04/19 05:20 Potassium 3.4 mmol/L (3.6-5.0) L 05/04/19 05:20 Chloride 103 mmol/L (98-107) 05/04/19 05:20 Carbon Dioxide 26 mmol/L (21-33) 05/04/19 05:20 Anion Gap 9 (10-20) L 05/04/19 05:20 BUN 10 mg/dL (7-21) 05/04/19 05:20 Creatinine 0.7 mg/dl (0.7-1.2) 05/04/19 05:20 Est GFR ( Amer) > 60 05/04/19 05:20 Est GFR (Non-Af Amer) > 60 05/04/19 05:20 Random Glucose 123 mg/dL (70-110) H 05/04/19 05:20 Calcium 9.3 mg/dL (8.4-10.5) 05/04/19 05:20 Phosphorus 3.1 mg/dL (2.5-4.5) 05/04/19 05:20 Magnesium 1.7 mg/dL (1.7-2.2) 05/04/19 05:20 Total Bilirubin 0.9 mg/dL (0.2-1.3) 05/04/19 05:20 AST 22 U/L (14-36) 05/04/19 05:20 ALT 15 U/L (7-56) 05/04/19 05:20 Alkaline Phosphatase 60 U/L (38-126) 05/04/19 05:20 Lactate Dehydrogenase 559 U/L (333-699) 05/02/19 23:00 Total Creatine Kinase 201 U/L (35-230) 05/02/19 23:00 Troponin I < 0.01 ng/mL 05/02/19 23:00 Total Protein 6.8 g/dL (5.8-8.3) 05/04/19 05:20 Albumin 3.3 g/dL (3.0-4.8) 05/04/19 05:20 Globulin 3.5 gm/dL 05/04/19 05:20 Albumin/Globulin Ratio 1.0 (1.1-1.8) L 05/04/19 05:20 Urine Color Yellow (YELLOW) 05/03/19 01:35 Urine Appearance Clear (CLEAR) 05/03/19 01:35 Urine pH 6.5 (4.7-8.0) 05/03/19 01:35 Ur Specific [place] 1.020 (1.005-1.035) 05/03/19 01:35 Urine Protein Negative mg/dL (<30 mg/dL) 05/03/19 01:35 Urine Glucose (UA) Negative mg/dL (NEGATIVE) 05/03/19 01:35 Urine Ketones Negative mg/dL (NEGATIVE) 05/03/19 01:35 Urine Blood Small (NEGATIVE) H 05/03/19 01:35 Urine Nitrate Negative (NEGATIVE) 05/03/19 01:35 Urine Bilirubin Negative (NEGATIVE) 05/03/19 01:35 Urine Urobilinogen 0.2 E.U./dL (<1 E.U./dL) 05/03/19 01:35 Ur Leukocyte Esterase Negative Madeline/uL (NEGATIVE) 05/03/19 01:35 Urine RBC 2 - 5 /hpf (0-2) H 05/03/19 01:35 Urine WBC 0 - 2 /hpf (0-6) 05/03/19 01:35 Ur Epithelial Cells 3 - 4 /hpf (0-5) 05/03/19 01:35 Urine Bacteria Small /hpf (NONE) 05/03/19 01:35 Hyaline Casts 0 - 2 /hpf (NONE) 05/03/19 01:35 Urine Other Fiber /hpf 05/03/19 01:35 Digoxin < 0.4 ng/mL (0.8-2.0) L 05/04/19 10:20 Salicylates < 1 mg/dL (2.0-20.0) L 05/02/19 23:00 Urine Opiates Screen Positive (NEGATIVE) H 05/02/19 22:04 Urine Methadone Screen Negative (NEGATIVE) 05/02/19 22:04 Acetaminophen < 10.0 ug/ml (10.0-20.0) L 05/03/19 14:50 Ur Barbiturates Screen Negative (NEGATIVE) 05/02/19 22:04 Ur Phencyclidine Scrn Negative (NEGATIVE) 05/02/19 22:04 Ur Amphetamines Screen Negative (NEGATIVE) 05/02/19 22:04 U Benzodiazepines Scrn Positive (NEGATIVE) H 05/02/19 22:04 U Oth Cocaine Metabols Negative (NEGATIVE) 05/02/19 22:04 U Cannabinoids Screen Negative (NEGATIVE) 05/02/19 22:04 Alcohol, Quantitative < 10 mg/dL (0-10) 05/02/19 23:00 - Hospital Course Hospital Course: 54 F was brought into [facility] ED with acute drug OD; she was given 5 doses of Narcan in the field and responded favorably. Labs revealed opiate, benzo, and tylenol intoxication. Patient was placed in ICU for observation and was given the three dose regimen for NAC. Patient was apparently suicidal on day of admission, so psych clearance was requested. Psychiatry, Dr. Robb, saw patient and stated that she was safe to AMA. Patient was transferred from ICU to Remote telemetry for monitoring of her asymptomatic bradycardia. Patient became acutely agitated, stated that she needed to go home to keep her job. RN paged me from the floor but by the time I had gotten there patient had eloped, refusing to sign AMA paperwork and refusing to stay in the hospital. Discharge Exam - Head Exam Head Exam: ATRAUMATIC, NORMAL INSPECTION, NORMOCEPHALIC Discharge Plan - Follow Up Plan Condition: GUARDED Disposition: AGAINST MEDICAL ADVICE Referrals: FAMILY PROVIDER,NO [Primary Care Provider] - <Yaz Graff - Last Filed: 05/04/19 18:09> Provider - Provider Date of Admission: 05/03/19 00:48 Attending physician: Yaz Graff MD Primary care physician: MARTY FAMILY PROVIDER Consults: 05/03/19 09:24 Psychiatry Consult Routine Comment: Consulting Provider: Clarisse Antonio Consulting Physician: Clarisse Antonio Reason for Consult: opioid/tylenol OD, possible suicide attempt; SI on day of admission Hospital Course - Lab Results Lab Results: Micro Results 05/03/19 03:35 Nose MRSA Culture (Admit) - Final Most Recent Lab Values WBC 5.3 10^3/uL (4.5-11.0) 05/04/19 05:20 RBC 4.81 10^6/uL (3.5-6.1) 05/04/19 05:20 Hgb 13.3 g/dL (12.0-16.0) 05/04/19 05:20 Hct 40.9 % (36.0-48.0) 05/04/19 05:20 MCV 85.0 fl (80.0-105.0) D 05/04/19 05:20 MCH 27.7 pg (25.0-35.0) 05/04/19 05:20 MCHC 32.5 g/dl (31.0-37.0) 05/04/19 05:20 RDW 14.7 % (11.5-14.5) H 05/04/19 05:20 Plt Count 218 10^3/uL (120.0-450.0) 05/04/19 05:20 MPV 10.5 fl (7.0-11.0) 05/04/19 05:20 Neut % (Auto) 76.8 % (50.0-68.0) H 05/04/19 05:20 Lymph % (Auto) 16.4 % (22.0-35.0) L 05/04/19 05:20 Edwards % (Auto) 4.9 % (1.0-6.0) 05/04/19 05:20 Eos % (Auto) 1.7 % (1.5-5.0) 05/04/19 05:20 Baso % (Auto) 0.2 % (0.0-3.0) 05/04/19 05:20 Lymph # (Auto) 0.9 (1.2-3.4) L 05/04/19 05:20 Edwards # (Auto) 0.3 (0.1-0.6) 05/04/19 05:20 Eos # (Auto) 0.1 (0.0-0.7) 05/04/19 05:20 Baso # (Auto) 0.01 K/mm3 (0.0-2.0) 05/04/19 05:20 Absolute Neuts (auto) 4.06 (1.4-6.5) 05/04/19 05:20 PT 14.4 SECONDS (9.4-12.5) H 05/03/19 21:40 INR 1.30 05/03/19 21:40 APTT 30.1 Seconds (26.9-38.3) 05/03/19 06:45 pCO2 44 mm/Hg (35-45) 05/02/19 22:15 pO2 76.0 mm/Hg (80-100) L 05/02/19 22:15 HCO3 29.9 mmol/L (21-28) H 05/02/19 22:15 ABG pH 7.44 (7.35-7.45) 05/02/19 22:15 ABG Total CO2 31.3 mmol.L (22-28) H 05/02/19 22:15 ABG O2 Saturation 98.0 % (95-98) 05/02/19 22:15 ABG O2 Content 17.6 ML/dl (15-23) 05/02/19 22:15 ABG Base Excess 5.0 mmol/L (-2.0-3.0) H 05/02/19 22:15 ABG Hemoglobin 13.7 g/dL (11.7-17.4) 05/02/19 22:15 ABG Carboxyhemoglobin 5.7 % (0.5-1.5) H 05/02/19 22:15 POC ABG HHb (Measured) 1.9 % (0-5) 05/02/19 22:15 ABG Methemoglobin 1.0 % (0.0-3.0) 05/02/19 22:15 ABG O2 Capacity 18.0 mL/dl (16-24) 05/02/19 22:15 Hgb O2 Saturation 91.3 % (95.0-98.0) L 05/02/19 22:15 FiO2 28.0 % 05/02/19 22:15 Sodium 135 mmol/L (132-148) 05/04/19 05:20 Potassium 3.4 mmol/L (3.6-5.0) L 05/04/19 05:20 Chloride 103 mmol/L (98-107) 05/04/19 05:20 Carbon Dioxide 26 mmol/L (21-33) 05/04/19 05:20 Anion Gap 9 (10-20) L 05/04/19 05:20 BUN 10 mg/dL (7-21) 05/04/19 05:20 Creatinine 0.7 mg/dl (0.7-1.2) 05/04/19 05:20 Est GFR ( Amer) > 60 05/04/19 05:20 Est GFR (Non-Af Amer) > 60 05/04/19 05:20 Random Glucose 123 mg/dL (70-110) H 05/04/19 05:20 Calcium 9.3 mg/dL (8.4-10.5) 05/04/19 05:20 Phosphorus 3.1 mg/dL (2.5-4.5) 05/04/19 05:20 Magnesium 1.7 mg/dL (1.7-2.2) 05/04/19 05:20 Total Bilirubin 0.9 mg/dL (0.2-1.3) 05/04/19 05:20 AST 22 U/L (14-36) 05/04/19 05:20 ALT 15 U/L (7-56) 05/04/19 05:20 Alkaline Phosphatase 60 U/L (38-126) 05/04/19 05:20 Lactate Dehydrogenase 559 U/L (333-699) 05/02/19 23:00 Total Creatine Kinase 201 U/L (35-230) 05/02/19 23:00 Troponin I < 0.01 ng/mL 05/02/19 23:00 Total Protein 6.8 g/dL (5.8-8.3) 05/04/19 05:20 Albumin 3.3 g/dL (3.0-4.8) 05/04/19 05:20 Globulin 3.5 gm/dL 05/04/19 05:20 Albumin/Globulin Ratio 1.0 (1.1-1.8) L 05/04/19 05:20 Urine Color Yellow (YELLOW) 05/03/19 01:35 Urine Appearance Clear (CLEAR) 05/03/19 01:35 Urine pH 6.5 (4.7-8.0) 05/03/19 01:35 Ur Specific [place] 1.020 (1.005-1.035) 05/03/19 01:35 Urine Protein Negative mg/dL (<30 mg/dL) 05/03/19 01:35 Urine Glucose (UA) Negative mg/dL (NEGATIVE) 05/03/19 01:35 Urine Ketones Negative mg/dL (NEGATIVE) 05/03/19 01:35 Urine Blood Small (NEGATIVE) H 05/03/19 01:35 Urine Nitrate Negative (NEGATIVE) 05/03/19 01:35 Urine Bilirubin Negative (NEGATIVE) 05/03/19 01:35 Urine Urobilinogen 0.2 E.U./dL (<1 E.U./dL) 05/03/19 01:35 Ur Leukocyte Esterase Negative Madeline/uL (NEGATIVE) 05/03/19 01:35 Urine RBC 2 - 5 /hpf (0-2) H 05/03/19 01:35 Urine WBC 0 - 2 /hpf (0-6) 05/03/19 01:35 Ur Epithelial Cells 3 - 4 /hpf (0-5) 05/03/19 01:35 Urine Bacteria Small /hpf (NONE) 05/03/19 01:35 Hyaline Casts 0 - 2 /hpf (NONE) 05/03/19 01:35 Urine Other Fiber /hpf 05/03/19 01:35 Digoxin < 0.4 ng/mL (0.8-2.0) L 05/04/19 10:20 Salicylates < 1 mg/dL (2.0-20.0) L 05/02/19 23:00 Urine Opiates Screen Positive (NEGATIVE) H 05/02/19 22:04 Urine Methadone Screen Negative (NEGATIVE) 05/02/19 22:04 Acetaminophen < 10.0 ug/ml (10.0-20.0) L 05/03/19 14:50 Ur Barbiturates Screen Negative (NEGATIVE) 05/02/19 22:04 Ur Phencyclidine Scrn Negative (NEGATIVE) 05/02/19 22:04 Ur Amphetamines Screen Negative (NEGATIVE) 05/02/19 22:04 U Benzodiazepines Scrn Positive (NEGATIVE) H 05/02/19 22:04 U Oth Cocaine Metabols Negative (NEGATIVE) 05/02/19 22:04 U Cannabinoids Screen Negative (NEGATIVE) 05/02/19 22:04 Alcohol, Quantitative < 10 mg/dL (0-10) 05/02/19 23:00 Attending/Attestation - Attestation I have personally seen and examined this patient.: Yes I have fully participated in the care of the patient.: Yes I have reviewed all pertinent clinical information, including history, physical exam and plan: Yes Notes (Text): 05/04/19 18:04 54 year old female with no known past medical history who presented after opioid/tylenol overdose. She responded to narcan. She received NAC and tylenol level trended down. LFTs were stable. On admission patient was also found to be hypertensive and bradycardic. She was on tridil drip in addition to lisinopril and clonidine started by ICU yesterday. Today her blood pressure has improved. She is off the tridil drip and plan was to taper her clonidine. This morning patient was awake and alert this morning. She admitted to taking heroin and xanax prior to admission. She was counselled on risks of substance / narcotic / tylenol / benzodiazepine abuse. She denied any suicidal intent and wished to go home. She is on 1:1 observation and seen by psychiatrist who cleared for discharge home. However she was not cleared medically due to bradycadia and adjusting her medications. She was explained risks of signing out against medical advice but refused to sign paper and walked out / eloped. Prognosis is guarded. Yaz Graff MD Hospitalist.
--- NOTE | 2019-05-05 00:40 | CON ---
DATE OF CONSULTATION: 05/04/2019 HISTORY OF PRESENT ILLNESS: The patient is a 54-year-old female with not known previous psychiatric history. The patient was admitted on the ICU status post possible drug overdose. As per collateral information, the patient was somnolent at home and possibly she overdosed and Narcan was given to the patient. Psych consult was called for evaluation of possible intentional overdose on drugs. The patient was seen and examined today. The patient presented to be very pleasant despite the fact that earlier the patient was agitated and wanted to leave against medical advice. This scientific technical writer is very familiar with this patient because this scientific technical writer was taking care of the patient's son, who has a history of schizophrenia, and this scientific technical writer is quite aware of the family dynamics. The patient presented to be alert and oriented. The patient reported that her son is not doing well, and he refused any help for his mental illness. The patient reported that she was feeling overwhelmed over that fact. The patient said that she was not able to sleep; that is why she tried to self-medicate with heroin which she snorts, and when this scientific technical writer asked why acetaminophen level was high, the patient said that she was trying to get high mixing pain medication as well as heroin. The patient said that her intent was to calm herself down and to sleep and the patient denied that she wanted to end her life. 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 The patient reported that she does not hear voices and she is not seeing things. The patient gave permission to talk to her daughterAkosua, phone number is . This scientific technical writer held a prolonged conversation with the patient's daughter. The patient's daughter reported that mother never verbalized any thoughts of harming herself, confirmed the story that her mother is not looking for psychiatric help and is not decompensating lately. The patient's daughter also reported that she has no concerns about the patient's safety and willing to help her with whatever she needs to in order to look for help for her mother. Going back to the mother, the patient herself agreed for information about outpatient counseling services as well as dual diagnosis programs. [employer] were notified. The patient said that she is willing to go to a Methadone Clinic. This scientific technical writer also offered [facility] Crisis [facility]vention contact information in case her son starts decompensating and will pose risk to self or others. The patient was appreciative. Discussed with the medical team about medical issues. The patient has bradycardia and blood pressure elevated. The patient is quite aware of that. The patient reported that she did not have any problems with her heart in the past and most likely it is related to the fact that she overdosed on multiple medications. The patient said in case of the worsening of her symptoms, she will come back to the hospital and will look for help. PHYSICAL EXAMINATION: VITAL SIGNS: Reviewed. Pulse rate was 61 earlier, but now it is 53, blood pressure is 119/77, respirations are 22, most recent was 18, oxygen saturation is 96. MEDICATIONS: Reviewed. Catapres, Lovenox, Pepcid, Zestril, and Nicoderm. LABORATORY DATA: Labs reviewed, most recent was from today. Chemistry reviewed. Urinalysis reviewed. Toxicology reviewed. Opioids positive, benzodiazepines positive, and acetaminophen level was 36. MENTAL STATUS EXAMINATION: The patient presented to be alert and oriented to self, time, and place. The patient is aware of the circumstances of her admission to the medical side. Mood described as "I have a lot of problems, but I'm okay." Affect was constricted, but reactive, mood congruent. Thought process, coherent and goal-directed. Thought content, the patient denied visual, auditory, or tactile hallucinations. Denied paranoid ideation. The patient denied thoughts of harming herself or others, denied intent or plan. Insight and judgment seemed to be limited into her addiction to opioids and fair into her medical issues. Impulses are well controlled. IMPRESSION: The patient has history of opioid abuse. The patient is status post unintentional overdose on Tylenol as well as benzodiazepines as well as opioids. Rule out adjustment disorder. PLAN: Discussed with the medical team, discussed with Tool [employer], discussed with the patient's family. The patient was offered admission to the psychiatric inpatient unit for further observation and stabilization and medication management, but the patient declined that offer. The patient does not want to go to inpatient rehab or detox. The patient wants to be discharged. From this scientific technical writer's perspective, the patient has basic understanding of the diagnosis, risk of leaving against medical advice. The patient has future-oriented plans. Family expressed no concerns about the patient's safety. From this scientific technical writer's perspective, the patient was provided with information about dual diagnosis programs as well as information about crisis intervention in [facility] for her son. Meanwhile, the patient posed no imminent danger to self or others. This scientific technical writer will sign off. This scientific technical writer spent more than 45 minutes of her time managing the patient. Clarisse Antonio MD
== END 2019-05-04 14:03 | disposition left against medical advice (07) | DRG 812 ==
LOC: ED 21:36 → ERH 05-03 00:48 → CCU 05-03 02:44 → 3RNO 05-04 10:50
PROVIDERS: ADMIT Internal Medicine; ATTEND Internal Medicine
DX: T39.1X1A Poisoning by 4-Aminophenol derivatives, accidental (unintentional), initial encounter (principal); I10 Essential (primary) hypertension; R00.1 Bradycardia, unspecified; T40.1X1A Poisoning by heroin, accidental (unintentional), initial encounter; T42.4X1A Poisoning by benzodiazepines, accidental (unintentional), initial encounter; Y92.009 Unspecified place in unspecified non-institutional (private) residence as the place of occurrence of the external cause; F11.10 Opioid abuse, uncomplicated